=== PATIENT | female | born 1955 | race Hispanic/Latino ===

== ENCOUNTER 2018-03-09 18:48 | Emergency (ER) | payer MEDICARE ==
[2018-03-09 20:17] LABS: Urine Blood NEGATIVE (NEG); Urine Glucose 2+ (NEG); Urine Protein TRACE (NEG); Urine Specific Gravity 1.015 (1.005-1.030); Urine pH 5.5 (5.0-7.0)
[2018-03-09 20:17] LABS: Absolute Lymphocytes (CBC) 2.3 K/uL (0.7-4.9); Absolute Monocytes 1.1 K/uL (0.1-1.3); Absolute Neutrophil 8.5 K/uL (1.8-8.0); Basophils % 0.7 % (0-1.3); Eosinophils % 3.2 % (0-4.4); Hematocrit 38.7 % (36.0-45.0); Lymphocytes % 18.8 % (15.3-44.8); MCH 32.1 pg (27.0-35.0); MCV 95.5 fL (80-100); MPV 7.7 fL (7.6-11.3); Monocytes % 8.7 % (3.3-12.3); RBC Red Blood Cell Count 4.05 M/uL (3.86-4.86)
[2018-03-09 20:31] LABS: Urine Bacteria <20 /HPF (<20); Urine Culture Reflex Order REFLEXED; Urine RBC <5 /HPF (NONE SEEN)
[2018-03-09 20:33] LABS: Potassium 4.3 mEq/L (3.6-5.0)
[2018-03-09 20:40] LABS: Albumin 4.3 g/dL (3.2-5.5); Bilirubin Direct 0.1 mg/dL (0-0.2); Bilirubin Total 0.7 mg/dL (0.3-1.2); Protein, Total 7.6 g/dL (6.0-8.3)
--- NOTE | 2018-03-09 21:21 | RAD REPORT ---
EXAM DESCRIPTION: CT - Abdomen Pelvis W Contrast - 03/09/2018 8:59 pm CLINICAL HISTORY: Left upper quadrant COMPARISON: None. TECHNIQUE: Biphasic, helical CT imaging of the abdomen and pelvis was performed following 100 ml non -ionic IV contrast. Oral contrast was given. All CT scans are performed using dose optimization technique as appropriate and may include automated exposure control or mA/KV adjustment according to patient size. FINDINGS: No suspicious findings in the lung bases. The liver, spleen, and pancreas show no suspicious findings. Cholecystectomy clips are present. No bi liary tree dilatation. Symmetric renal function is seen with no hydronephrosis or suspicious renal mass. No bladder abnormal ity. Uterus is absent. Ovaries are absent or atrophic. No gastric dilatation or gastric wall thickening. No dilated small bowel loop or significant small shyam wel wall thickening seen. There are no appendicitis findings. From cecum through splenic flexure no a cute colon process seen. There is a trace amount of edema or stranding in the descending colon near t he junction with the sigmoid colon a minimal colitis or diverticulitis suspected. Patient has mild di verticulosis. No free air, pneumatosis or free fluid. No other stranding seen. No mass or bulky lymphadenopathy. No adrenal abnormality. Advanced disc and bony degenerative change present in the lower lumbar spine. IMPRESSION: Minimal diverticulitis findings in the distal portion of the descending colon. No abscess, free air or surgically emergent finding.
[2018-03-09] MEDS ORDERED: ACETAMINOPHEN 500 MG TAB ONE (21:26)
[2018-03-09] MEDS ORDERED: MORPHINE 4 MG/ML SYR ONE (22:12)
[2018-03-09] MEDS ORDERED: CIPROFLOXACIN HCL 500 MG TAB ONE (22:12)
[2018-03-09] MEDS ORDERED: ONDANSETRON 4 MG/2 ML VIAL ONE (22:12)
[2018-03-09] MEDS ORDERED: METRONIDAZOLE 500mg IVPB 500 MG/100 ML BAG IV ONE (22:14)
--- NOTE | 2018-03-09 22:40 | EDPHYS ---
Physician Documentation [facility] Name: Chelly Ferguson Age: 62 yrs Sex: Female : 1955 Arrival Date: 03/09/2018 Time: 18:49 Bed 6 Private MD: ED Physician Marvin Treviño HPI: 03/09 19:55 This 62 yrs old Female presents to ER via Ambulatory with complaints of PAIN tw4 LEFT SIDE. 19:55 The patient presents with abdominal pain. Onset: The symptoms/episode began/occurred 3 tw4 day(s) ago. The symptoms radiate to the left flank, left femoral area and left inguinal area. Associated signs and symptoms: none. The symptoms are described as sharp. Modifying factors: The symptoms are alleviated by remaining still, the symptoms are aggravated by coughing, breathing deeply, movement, pressure. Severity of pain: At its worst the pain was moderate in the emergency department the pain is unchanged. The patient has not experienced similar symptoms in the past. The patient has not recently seen a physician. Historical: - Allergies: 19:14 No Known Allergies; hb - Immunization history:: Adult Immunizations up to date. - Social history:: Smoking status: Patient/guardian denies using tobacco. ROS: 19:55 Constitutional: Negative for fever, chills, and weight loss, Cardiovascular: Negative tw4 for chest pain, palpitations, and edema, Respiratory: Negative for shortness of breath, cough, wheezing, and pleuritic chest pain, Back: Negative for injury and pain, MS/Extremity: Negative for injury and deformity, Skin: Negative for injury, rash, and discoloration, Neuro: Negative for headache, weakness, numbness, tingling, and seizure. 19:55 Abdomen/GI: Positive for abdominal pain, abdominal cramps, abdominal distension, Negative for black/tarry stool, rectal pain, rectal bleeding, bowel incontinence. Exam: 19:55 Constitutional: This is a well developed, well nourished patient who is awake, alert, tw4 and in no acute distress. Head/Face: Normocephalic, atraumatic. Chest/axilla: Normal chest wall appearance and motion. Nontender with no deformity. No lesions are appreciated. Cardiovascular: Regular rate and rhythm with a normal S1 and S2. No gallops, murmurs, or rubs. Normal PMI, no JVD. No pulse deficits. Respiratory: Lungs have equal breath sounds bilaterally, clear to auscultation and percussion. No rales, rhonchi or wheezes noted. No increased work of breathing, no retractions or nasal flaring. 19:55 Abdomen/GI: Inspection: abdomen appears normal, Bowel sounds: normal, Palpation: moderate abdominal tenderness, in the left upper quadrant and left lower quadrant. Vital Signs: 19:14 BP 160 / 88; Pulse 111; Resp 20; Temp 98; Pulse Ox 96% ; Weight 72.57 kg; Height 5 ft. hb 1 in. (154.94 cm); Pain 8/10; 20:40 BP 158 / 76; Pulse 105; Resp 18; Pulse Ox 97% on R/A; ea 21:41 BP 149 / 87; Pulse 105; Resp 18; Pulse Ox 98% ; ea 22:26 BP 155 / 98; Pulse 108; Resp 18; Pulse Ox 97% ; ea 23:05 BP 143 / 83; Pulse 97; Resp 18; Pulse Ox 97% ; Pain 4/10; mg2 23:33 BP 141 / 80; Pulse 99; Resp 18; Temp 97.2(O); Pulse Ox 97% on R/A; Pain 0/10; mg2 19:14 Body Mass Index 30.23 (72.57 kg, 154.94 cm) hb MDM: 19:46 Patient medically screened. tw4 22:38 Differential diagnosis: bowel obstruction, cholecystitis, Cholelithiasis, tw4 diverticulitis, Peptic Ulcer Disease, Perf. Duodenal Ulcer, Perf. Gastric Ulcer, Pyelonephritis, Ureterolithiasis, urinary tract infection. Data reviewed: vital signs, nurses notes. Counseling: I had a detailed discussion with the patient and/or guardian regarding: the historical points, exam findings, and any diagnostic results supporting the discharge/admit diagnosis. Medication response: morphine markedly relieved the patient's pain. Symptoms have improved. Response to treatment: the patient's symptoms have markedly improved after treatment, and as a result, I will discharge patient. Special discussion: I discussed with the patient/guardian in detail that at this point there is no indication for admission to the hospital. It is understood, however, that if the symptoms persist or worsen the patient needs to return immediately for re-evaluation. Special discussion: Based on the patient's Hx, exam, and Dx evaluation, there is no indication for emergent surgery or inpatient Tx. It is understood by the patient/guardian that if the Sx's persist or worsen they need to return immediately for re-evaluation. 03/09 19:31 Order name: Amylase, Serum; Complete Time: 21:22 [facility] 03/09 21:22 Interpretation: Within normal limits: SHERLEY 80. [facility] 03/09 19:31 Order name: Basic Metabolic Panel; Complete Time: 21:22 [facility] 03/09 21:22 Interpretation: Normal except: GLUC 197; BUN 23; CRE 1.03. 03/09 19:31 Order name: CBC with Diff; Complete Time: 21:22 [facility] 03/09 21:22 Interpretation: Normal except: WBC 12.4. 03/09 19:31 Order name: Creatinine for Radiology; Complete Time: 21:22 [facility] 03/09 21:22 Interpretation: Abnormal: GFR 50; CRE 1.10. [facility] 03/09 19:31 Order name: Hepatic Function; Complete Time: 21:22 [facility] 03/09 21:22 Interpretation: Within normal limits. 03/09 19:31 Order name: Lipase; Complete Time: 21:22 [facility] 03/09 21:23 Interpretation: Within normal limits. 03/09 19:31 Order name: Urine Microscopic Only; Complete Time: 21:22 [facility] 03/09 21:22 Interpretation: Normal except: UWBC 20-50. 03/09 19:57 Order name: CT Abd/Pelvis - W/Contrast; Complete Time: 21:47 [facility] 03/09 20:10 Order name: Urine Dipstick--Ancillary (enter results); Complete Time: 21:22 [place] 03/09 20:33 Order name: Urine Culture [facility] 03/09 19:31 Order name: IV Saline Lock; Complete Time: 20:19 [facility] 03/09 19:31 Order name: Labs collected and sent; Complete Time: 20:19 [facility] 03/09 19:31 Order name: Urine Dipstick-Ancillary (obtain specimen); Complete Time: 20:19 tw4 Administered Medications: 21:28 Drug: Tylenol 1000 mg Route: PO; ea 22:30 Follow up: Response: No adverse reaction ea 22:29 Drug: morphine 2 mg Route: IVP; Site: right antecubital; ea 23:06 Follow up: Response: No adverse reaction; Pain is decreased mg2 22:29 Drug: Flagyl 500 mg Volume: 100 ml; Route: IVPB; Rate: 200 ml/hr; Infused Over: 30 ea mins; Site: right antecubital; 23:28 Follow up: Response: No adverse reaction; IV Status: Completed infusion mg2 22:29 Drug: Cipro 500 mg Route: PO; ea 23:07 Follow up: Response: No adverse reaction mg2 22:29 Drug: Zofran 4 mg Route: IVP; Site: right antecubital; ea 23:07 Follow up: Response: No adverse reaction; Marked relief of symptoms mg2 Disposition: 03/09/18 22:40 Discharged to Home. Impression: Diverticulitis of intestine, part unspecified, with perforation and abscess without bleeding. - Condition is Stable. - Discharge Instructions: Diverticulitis, Diverticulitis, [id number]. - Prescriptions for Cipro 500 mg Oral Tablet - take 1 tablet by ORAL route every 12 hours for 10 days; 20 tablet. Flagyl 500 mg Oral Tablet - take 1 tablet by ORAL route every 12 hours for 7 days; 14 tablet. Tylenol- Codeine #3 300-30 mg Oral Tablet - take 2 tablet by ORAL route every 6 hours As needed; 6 tablet. Motrin IB 200 mg Oral Tablet - take 1 tablet by ORAL route every 6 hours As needed as needed with food; 40 tablet. - Medication Reconciliation Form, Thank You Letter, Antibiotic Education, Prescription Opioid Use form. - Follow up: Private Physician; When: Upon discharge from the Emergency Department; Reason: Recheck today's complaints, Continuance of care, Re-evaluation by your physician. - Problem is new. - Symptoms have improved. Signatures: Dispatcher [employer] EDMS Marina Jain RN RN Xenia An RN RN Marvin De La Paz MD MD tw4 Marco A Chiu RN RN mg2 Corrections: (The following items were deleted from the chart) 23:35 22:40 03/09/2018 22:40 Discharged to Home. Impression: Diverticulitis of intestine, mg2 part unspecified, with perforation and abscess without bleeding. Condition is Stable. Forms are Medication Reconciliation Form, Thank You Letter, Antibiotic Education, Prescription Opioid Use. Follow up: Private Physician; When: Upon discharge from the Emergency Department; Reason: Recheck today's complaints, Continuance of care, Re-evaluation by your physician. Problem is new. Symptoms have improved. tw4
--- NOTE | 2018-03-09 22:40 | ER ---
Nurse's Notes [facility] Name: Cehlly Ferguson Age: 62 yrs Sex: Female : 1955 Arrival Date: 03/09/2018 Time: 18:49 Bed 6 Private MD: Diagnosis: Diverticulitis of intestine, part unspecified, with perforation and abscess without bleeding Presentation: 03/09 19:13 Presenting complaint: Patient states: intermittent LUQ pain x 3 days. Denies N/V/D. hb Transition of care: patient was not received from another setting of care. Onset of symptoms is unknown. Care prior to arrival: None. 19:13 Method Of Arrival: Ambulatory hb 19:13 Acuity: BRADLY 3 hb 20:00 Initial Sepsis Screen: Does the patient meet any 2 criteria? HR > 90 bpm. Does the ea patient have a suspected source of infection? No. Patient's initial sepsis screen is negative. Historical: - Allergies: 19:14 No Known Allergies; hb - Immunization history:: Adult Immunizations up to date. - Social history:: Smoking status: Patient/guardian denies using tobacco. Screenin:10 Abuse screen: Denies threats or abuse. Nutritional screening: No deficits noted. ea Tuberculosis screening: No symptoms or risk factors identified. Fall Risk None identified. Assessment: 20:00 General: Appears uncomfortable, Behavior is calm, cooperative, appropriate for age. ea Pain: Complains of pain in left upper quadrant Pain currently is 9 out of 10 on a pain scale. Quality of pain is described as aching. Neuro: Level of Consciousness is awake, alert, obeys commands, Oriented to person, place, time, situation. Cardiovascular: Heart tones S1 S2 present Patient's skin is warm and dry. Respiratory: Airway is patent Respiratory effort is even, unlabored, Respiratory pattern is regular, symmetrical, Breath sounds are clear bilaterally. GI: Abdomen is obese, Bowel sounds present X 4 quads. Abdomen is tender to palpation in left upper quadrant. Derm: Skin is pink, warm \T\ dry. 21:15 Reassessment: Patient and/or family updated on plan of care and expected duration. Pain ea level reassessed. Patient is alert, oriented x 3, equal unlabored respirations, skin warm/dry/pink. 22:31 Reassessment: Patient and/or family updated on plan of care and expected duration. Pain ea level reassessed. Patient is alert, oriented x 3, equal unlabored respirations, skin warm/dry/pink. 23:04 Reassessment: Patient and/or family updated on plan of care and expected duration. Pain mg2 level reassessed. Patient is alert, oriented x 3, equal unlabored respirations, skin warm/dry/pink. Discharge instructions given to patient, awaiting for antibiotic infusion to complete. 23:30 Reassessment: Patient and/or family updated on plan of care and expected duration. Pain mg2 level reassessed. Patient is alert, oriented x 3, equal unlabored respirations, skin warm/dry/pink. Pt completed antibiotics. Patient denies pain at this time. Patient states feeling better. Vital Signs: 19:14 BP 160 / 88; Pulse 111; Resp 20; Temp 98; Pulse Ox 96% ; Weight 72.57 kg; Height 5 ft. hb 1 in. (154.94 cm); Pain 8/10; 20:40 BP 158 / 76; Pulse 105; Resp 18; Pulse Ox 97% on R/A; ea 21:41 BP 149 / 87; Pulse 105; Resp 18; Pulse Ox 98% ; ea 22:26 BP 155 / 98; Pulse 108; Resp 18; Pulse Ox 97% ; ea 23:05 BP 143 / 83; Pulse 97; Resp 18; Pulse Ox 97% ; Pain 4/10; mg2 23:33 BP 141 / 80; Pulse 99; Resp 18; Temp 97.2(O); Pulse Ox 97% on R/A; Pain 0/10; mg2 19:14 Body Mass Index 30.23 (72.57 kg, 154.94 cm) hb ED Course: 18:49 Patient arrived in ED. mr 19:14 Triage completed. hb 19:14 Arm band placed on right wrist. hb 19:46 Marvin Treviño MD is Attending Physician. tw4 19:50 Xenia An RN is Primary Nurse. ea 20:00 Patient has correct armband on for positive identification. Bed in low position. Call ea light in reach. Side rails up X2. 20:00 Inserted saline lock: 20 gauge in right antecubital area, using aseptic technique. ea Blood collected. 21:00 CT Abd/Pelvis - W/Contrast In Process Unspecified. EDMS 21:01 CT completed. Patient tolerated procedure well. Patient moved to [place] via stretcher. Patient moved back from MN. 23:04 No provider procedures requiring assistance completed. mg2 23:35 IV discontinued, intact, bleeding controlled, No redness/swelling at site. Pressure mg2 dressing applied. Administered Medications: 21:28 Drug: Tylenol 1000 mg Route: PO; ea 22:30 Follow up: Response: No adverse reaction ea 22:29 Drug: morphine 2 mg Route: IVP; Site: right antecubital; ea 23:06 Follow up: Response: No adverse reaction; Pain is decreased mg2 22:29 Drug: Flagyl 500 mg Volume: 100 ml; Route: IVPB; Rate: 200 ml/hr; Infused Over: 30 ea mins; Site: right antecubital; 23:28 Follow up: Response: No adverse reaction; IV Status: Completed infusion mg2 22: Drug: Cipro 500 mg Route: PO; ea 23:07 Follow up: Response: No adverse reaction mg2 22:29 Drug: Zofran 4 mg Route: IVP; Site: right antecubital; ea 23:07 Follow up: Response: No adverse reaction; Marked relief of symptoms mg2 Outcome: 22:40 Discharge ordered by tw4 23:04 Discharge instructions given to patient, Instructed on discharge instructions, follow mg2 up and referral plans. medication usage, Demonstrated understanding of instructions, follow-up care, medications, Prescriptions given X 4. 23:35 Discharged to home ambulatory, with family. mg2 23:35 Condition: improved 23:35 Patient left the ED. mg2 Signatures: Dispatcher [employer] [facility] Jenn Goodman XiaoClay Marina Jain, ROX GRAMAJO Xenia An RN RN ea Wadley, Terrence, MD MD tw4 Marco A Chiu RN RN mg2
[2018-03-09 23:44] VITALS: O2SAT 97
[2018-03-09 23:46] VITALS: BP 141/80; TEMP 97.2
== END 2018-03-09 23:35 | disposition home or self-care (01) ==
LOC: ER 18:48
DX: K57.92 Diverticulitis of intestine, part unspecified, without perforation or abscess without bleeding (principal)
CPT/HCPCS: 36415; 74177; 80048; 80076; 82150; 83690; 85025; 87086; 87088; J2405; Q9967; 81003; 81015; 96365; 96375; 99284

== ENCOUNTER 2018-03-11 12:28 | Emergency (ER) | payer MEDICARE ==
--- OUTSIDE RECORDS SUMMARY | 2018-03-11 12:29 | XMS REPORT ---
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 Problem Diabetes mellitus type 2, E11.9 Active uncontrolled, without complications Problem Malaise and fatigue R53.81 Active Assessment Vitamin D deficiency E55.9 Active Assessment 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 Assessment Allergic rhinitis, seasonal J30.2 Active Assessment Hypomagnesemia E83.42 Active Assessment Benign essential hypertension I10 Active Assessment Hyperlipemia, mixed E78.2 Active Assessment Proteinuria, unspecified R80.9 Active Assessment Malaise and fatigue R53.81 Active Assessment Diabetes mellitus type 2, E11.9 Active uncontrolled, without complications Medications Medication Code Code Instructions Start End Status Dosage System Date Date Lisinopril [facility] 40748407115 20 MG Orally Active 1 tablet Once a day Jardiance [facility] 95120369702 10 MG Orally February Inactive 1 tablet Once a day 2017 Glucophage [facility] 38255150744 1000 MG Orally Active 1 tablet Twice a day with meals Lipitor ND 61279139515 20 MG Orally Active 1 tablet Once a day Vitamin D3 [facility] 53740549927 2000 UNIT Active 1 capsule Orally Once a day Jardiance [facility] 78238890037 25 MG Orally March 05Jun Active 1 tablet Once a day 2017 Hydrochlorothiazide [facility] 47380776963 12.5 MG Orally Active 1 tablet Once a day in the morning Magnesium Oxide ND 47816402013 400 MG Orally Nov Active 1 tablet Twice a day , as needed 2017 Gabapentin [facility] 35066763587 600 MG Orally Active 1 tablet Twice a day Results No Known Results Summary Purpose eClinicalWorks Submission
[2018-03-11] MEDS ORDERED: MAGNESIUM CITRATE 300 ML BOT ONE (13:40)
[2018-03-11] MEDS ORDERED: BISACODYL E.C. 5 MG TAB PO ONE (13:40)
--- NOTE | 2018-03-11 14:02 | RAD REPORT ---
EXAM DESCRIPTION: RAD - Abdomen Acute Series - 03/11/2018 1:53 pm CLINICAL HISTORY: Abdominal pain FINDINGS: Free air is not seen beneath the diaphragm. The lungs appear clear of acute infiltrate. The bowel gas pattern is unremarkable. Surgical clips are present within the right upper quadrant. No abnormal mass is visualized
--- NOTE | 2018-03-11 14:37 | EDPHYS ---
Physician Documentation [facility] Name: Chelly Ferguson Age: 62 yrs Sex: Female : 1955 Arrival Date: 03/11/2018 Time: 12:32 Bed 23 Private MD: Mayela Pacheco H ED Physician Venkat Downs HPI: 03/11 14:22 This 62 yrs old Female presents to ER via Ambulatory with complaints of kdr Constipation. 14:22 The patient presents with abdominal pain that is diffuse. Onset: The symptoms/episode kdr began/occurred gradually, Since last year. The symptoms do not radiate. Associated signs and symptoms: Pertinent positives: constipation, nausea, Pertinent negatives: anorexia, blood in stools, chest pain, diarrhea, fever, headache, hematuria, palpitations, shortness of breath. Historical: - Allergies: 12:39 No Known Allergies; aj - Home Meds: 12:39 Jardiance 10 mg oral tab 1 tab once daily [Active]; Magnesium Oxide Oral [Active]; aj Glucophage 1,000 mg Oral tab 1 tab 2 times per day [Active]; lisinopril 20 mg Oral tab 1 tab once daily [Active]; hydrochlorothiazide 12.5 mg Oral tab 1 tab once daily [Active]; gabapentin 600 mg oral tab 1 tab twice a day [Active]; Lipitor 20 mg Oral tab 1 tab once daily [Active]; - PMHx: 12:39 Diabetes - NIDDM; Hyperlipidemia; Hypertension; aj - PSHx: 12:39 Hysterectomy; Cholecystectomy; aj - Immunization history:: Adult Immunizations up to date. - Social history:: Smoking status: Patient/guardian denies using tobacco. ROS: 14:22 Constitutional: Negative for fever, chills, and weight loss, Eyes: Negative for injury, kdr pain, redness, and discharge, ENT: Negative for injury, pain, and discharge, Neck: Negative for injury, pain, and swelling, Cardiovascular: Negative for chest pain, palpitations, and edema, Respiratory: Negative for shortness of breath, cough, wheezing, and pleuritic chest pain, Back: Negative for injury and pain, : Negative for injury, bleeding, discharge, and swelling, MS/Extremity: Negative for injury and deformity, Skin: Negative for injury, rash, and discoloration, Neuro: Negative for headache, weakness, numbness, tingling, and seizure activity. Psych: Negative for depression, anxiety, suicide ideation, homicidal ideation, and hallucinations, Allergy/Immunology: Negative for hives, rash, and allergies, Endocrine: Negative for neck swelling, polydipsia, polyuria, polyphagia, and marked weight changes, Hematologic/Lymphatic: Negative for swollen nodes, abnormal bleeding, and unusual bruising. 14:22 Abdomen/GI: Positive for abdominal pain, nausea, Negative for vomiting, constipation, abdominal cramps, abdominal distension, anorexia, dysphagia, hematemesis, black/tarry stool, rectal pain, rectal bleeding, bowel incontinence. Exam: 14:22 Constitutional: This is a well developed, well nourished patient who is awake, alert, kdr and in no acute distress. Head/Face: Normocephalic, atraumatic. Eyes: Pupils equal round and reactive to light, extra-ocular motions intact. Lids and lashes normal. Conjunctiva and sclera are non-icteric and not injected. Cornea within normal limits. Periorbital areas with no swelling, redness, or edema. Neck: Trachea midline, no thyromegaly or masses palpated, and no cervical lymphadenopathy. Supple, full range of motion without nuchal rigidity, or vertebral point tenderness. No Meningismus. Chest/axilla: Normal chest wall appearance and motion. Nontender with no deformity. No lesions are appreciated. Cardiovascular: Regular rate and rhythm with a normal S1 and S2. No gallops, murmurs, or rubs. Normal PMI, no JVD. No pulse deficits. Respiratory: Lungs have equal breath sounds bilaterally, clear to auscultation and percussion. No rales, rhonchi or wheezes noted. No increased work of breathing, no retractions or nasal flaring. Back: No spinal tenderness. No costovertebral tenderness. Full range of motion. Skin: Warm, dry with normal turgor. Normal color with no rashes, no lesions, and no evidence of cellulitis. MS/ Extremity: Pulses equal, no cyanosis. Neurovascular intact. Full, normal range of motion. Neuro: Awake and alert, GCS 15, oriented to person, place, time, and situation. Cranial nerves II-XII grossly intact. Motor strength 5/5 in all extremities. Sensory grossly intact. Cerebellar exam normal. Normal gait. Psych: Awake, alert, with orientation to person, place and time. Behavior, mood, and affect are within normal limits. 14:22 Abdomen/GI: Inspection: abdomen appears normal, Bowel sounds: diminished, in all quadrants, Palpation: soft, mild abdominal tenderness, in all quadrants, mass, is not appreciated, rebound tenderness, is not appreciated. Vital Signs: 12:39 BP 153 / 77; Pulse 101; Resp 19; Temp 97.6; Pulse Ox 97% on R/A; Weight 72.57 kg; aj Height 5 ft. 1 in. (154.94 cm); 14:00 BP 172 / 88; Pulse 81; Resp 18; Pulse Ox 99% on R/A; tl3 14:57 BP 148 / 76; Pulse 92; Resp 16; Pulse Ox 97% on R/A; tl3 12:39 Body Mass Index 30.23 (72.57 kg, 154.94 cm) aj MDM: 14:22 Data reviewed: vital signs, nurses notes, lab test result(s), radiologic studies. kdr Counseling: I had a detailed discussion with the patient and/or guardian regarding: the historical points, exam findings, and any diagnostic results supporting the discharge/admit diagnosis, radiology results, the need for outpatient follow up. 14:36 Patient medically screened. kdr 03/11 13:25 Order name: Abdomen Acute Series XRAY; Complete Time: 14:18 kdr Administered Medications: 14:00 Drug: Magnesium Citrate Liquid 300 ml Route: PO; tl3 14:54 Follow up: Response: No adverse reaction tl3 14:00 Drug: Dulcolax Delayed Release Tablet 5 mg Route: PO; tl3 14:54 Follow up: Response: No adverse reaction tl3 Disposition: 1618 14:36 Discharged to Home. Impression: Constipation, Abdominal and pelvic pain. - Condition is Stable. - Discharge Instructions: Constipation, Adult, [id number], Abdominal Pain, Adult, [id number]. - Prescriptions for Pepcid 20 mg Oral Tablet - take 1 tablet by ORAL route every 12 hours for 5 days; 10 tablet. Tramadol 50 mg Oral Tablet - take 1 tablet by ORAL route every 8 hours as needed; 12 tablet. Dulcolax 10 mg Rectal Suppository - insert 1 suppository by RECTAL route every 6 hours As needed; 10 suppository. Miralax 17 gram/dose Oral - take 1 packet by ORAL route once daily As needed dilute powder in 8 ounces of water or juice; 1 box. - Medication Reconciliation Form, Thank You Letter, Antibiotic Education, Prescription Opioid Use form. - Follow up: Mayela Pacheco DO; When: 2 - 3 days; Reason: If symptoms return, Further diagnostic work-up, Recheck today's complaints, Continuance of care, Re-evaluation by your physician. - Problem is an ongoing problem. - Symptoms have improved. Signatures: Dispatcher [employer] EDMS Evy Suarez RN RN aj Venkat Downs MD MD [facility] [address] Clarissa Martinez RN RN tl3 Corrections: (The following items were deleted from the chart) 14:59 14:36 03/11/2018 14:36 Discharged to Home. Impression: Constipation; Abdominal and tl3 pelvic pain. Condition is Stable. Forms are Medication Reconciliation Form, Thank You Letter, Antibiotic Education, Prescription Opioid Use. Follow up: Mayela Pacheco; When: 2 - 3 days; Reason: If symptoms return, Further diagnostic work-up, Recheck today's complaints, Continuance of care, Re-evaluation by your physician. Problem is an ongoing problem. Symptoms have improved. kdr
--- NOTE | 2018-03-11 14:37 | ER ---
Nurse's Notes [facility] Name: Chelly Ferguson Age: 62 yrs Sex: Female : 1955 Arrival Date: 03/11/2018 Time: 12:32 Bed 23 Private MD: Mayela Pacheco H Diagnosis: Constipation;Abdominal and pelvic pain Presentation: 03/11 12:35 Presenting complaint: Patient states: Constipation since Friday. DX with "infection in aj colon" here on Friday. Patient reports she has been compliant with ABX. Transition of care: patient was not received from another setting of care. Onset of symptoms was March 08, 2018. Care prior to arrival: None. 12:35 Method Of Arrival: Ambulatory aj 12:35 Acuity: BRADLY 4 aj 14:59 Initial Sepsis Screen: Does the patient meet any 2 criteria? Does the patient have a tl3 suspected source of infection? No. Patient's initial sepsis screen is negative. Triage Assessment: 12:39 General: Appears in no apparent distress. comfortable, Behavior is calm, cooperative, aj appropriate for age. Pain: Complains of pain in abdomen. Neuro: Level of Consciousness is awake, alert, obeys commands, Oriented to person, place, time, situation, Appropriate for age. Respiratory: Airway is patent Respiratory effort is even, unlabored, Respiratory pattern is regular, symmetrical. GI: Abdomen is obese, Reports constipation, cramping. Derm: Skin is intact, is healthy with good turgor, Skin is pink, warm \\T\\ dry. normal. Historical: - Allergies: 12:39 No Known Allergies; aj - Home Meds: 12:39 Jardiance 10 mg oral tab 1 tab once daily [Active]; Magnesium Oxide Oral [Active]; aj Glucophage 1,000 mg Oral tab 1 tab 2 times per day [Active]; lisinopril 20 mg Oral tab 1 tab once daily [Active]; hydrochlorothiazide 12.5 mg Oral tab 1 tab once daily [Active]; gabapentin 600 mg oral tab 1 tab twice a day [Active]; Lipitor 20 mg Oral tab 1 tab once daily [Active]; - PMHx: 12:39 Diabetes - NIDDM; Hyperlipidemia; Hypertension; aj - PSHx: 12:39 Hysterectomy; Cholecystectomy; aj - Immunization history:: Adult Immunizations up to date. - Social history:: Smoking status: Patient/guardian denies using tobacco. Screenin:56 Abuse screen: Denies threats or abuse. Nutritional screening: No deficits noted. tl3 Tuberculosis screening: No symptoms or risk factors identified. Fall Risk None identified. Assessment: 12:56 General: Appears uncomfortable, well groomed, well developed, well nourished, Behavior tl3 is calm, cooperative, appropriate for age, Reports constipation, no BM since Friday. Was actually seen here on Friday for same, put on abx. Pain: Complains of pain in abdomen. Neuro: Level of Consciousness is awake, alert, obeys commands, Oriented to person, place, time, situation, Appropriate for age. Cardiovascular: Denies chest pain, Heart tones S1 S2 present Patient's skin is warm and dry. Respiratory: Airway is patent Trachea midline Respiratory effort is even, unlabored, Respiratory pattern is regular, symmetrical, Breath sounds are clear bilaterally. GI: Bowel sounds hypoactive in right upper quadrant, left upper quadrant, right lower quadrant and left lower quadrant Abd is soft. : No signs and/or symptoms were reported regarding the genitourinary system. EENT: No signs and/or symptoms were reported regarding the EENT system. Derm: No signs and/or symptoms reported regarding the dermatologic system. Musculoskeletal: No signs and/or symptoms reported regarding the musculoskeletal system. 14:00 Reassessment: Patient appears in no apparent distress at this time. No changes from tl3 previously documented assessment. Patient and/or family updated on plan of care and expected duration. Pain level reassessed. Patient is alert, oriented x 3, equal unlabored respirations, skin warm/dry/pink. pt starting Mag Citrate. 14:57 Reassessment: Patient appears in no apparent distress at this time. No changes from tl3 previously documented assessment. Patient and/or family updated on plan of care and expected duration. Pain level reassessed. Patient is alert, oriented x 3, equal unlabored respirations, skin warm/dry/pink. Vital Signs: 12:39 BP 153 / 77; Pulse 101; Resp 19; Temp 97.6; Pulse Ox 97% on R/A; Weight 72.57 kg; aj Height 5 ft. 1 in. (154.94 cm); 14:00 BP 172 / 88; Pulse 81; Resp 18; Pulse Ox 99% on R/A; tl3 14:57 BP 148 / 76; Pulse 92; Resp 16; Pulse Ox 97% on R/A; tl3 12:39 Body Mass Index 30.23 (72.57 kg, 154.94 cm) ED Course: 12:32 Patient arrived in ED. mr 12:32 Tara ShannonMicaRafaelDO en is Private Physician. mr 12:34 Venkat Downs MD is Attending Physician. kdr 12:36 Triage completed. aj 12:39 Arm band placed on right wrist. Patient placed in an exam room. aj 12:56 Clarissa Martinez, RN is Primary Nurse. tl3 12:56 No apparent distress. tl3 12:56 Patient has correct armband on for positive identification. Bed in low position. Call tl3 light in reach. Side rails up X 1. Adult w/ patient. 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 tl3 13:41 Patient moved to radiology via wheelchair. sw 13:49 X-ray completed. Patient tolerated procedure well. Patient moved back from radiology. sw 13:50 Abdomen Acute Series XRAY In Process Unspecified. EDMS 14:35 Pacheco ShannonDO Heydi is Referral Physician. kdr 14:57 Patient did not have IV access during this emergency room visit. tl3 Administered Medications: 14:00 Drug: Magnesium Citrate Liquid 300 ml Route: PO; tl3 14:54 Follow up: Response: No adverse reaction tl3 14:00 Drug: Dulcolax Delayed Release Tablet 5 mg Route: PO; tl3 14:54 Follow up: Response: No adverse reaction tl3 Outcome: 14:36 Discharge ordered by . kdr 14:57 Discharged to home ambulatory. tl3 14:57 Condition: good 14:57 Discharge instructions given to patient, Instructed on discharge instructions, follow up and referral plans. medication usage, Demonstrated understanding of instructions, follow-up care, medications, Prescriptions given X 4. 14:59 Patient left the ED. tl3 Signatures: Dispatcher [employer] EDMS Evy Suarez, RN Venkat Helton MD MD kdr Rivera, Maria mr Levy Candace Clarissa Martinez, ROX RN tl3
[2018-03-11 15:05] VITALS: TEMP 97.6
[2018-03-11 15:07] VITALS: BP 148/76; O2SAT 97
== END 2018-03-11 14:59 | disposition home or self-care (01) ==
LOC: ER 12:28
DX: K59.00 Constipation, unspecified (principal); E11.9 Type 2 diabetes mellitus without complications; E78.5 Hyperlipidemia, unspecified; I10 Essential (primary) hypertension
CPT/HCPCS: 74022; 99284

== ENCOUNTER 2019-06-05 07:38 | Emergency (ER) | payer MEDICARE ==
--- OUTSIDE RECORDS SUMMARY | 2019-06-05 07:42 | XMS REPORT ---
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 Problem Constipation, unspecified K59.00 Active constipation type Problem Allergic rhinitis, seasonal J30.2 Active Problem Diverticulitis of large intestine K57.32 Active without perforation or abscess without bleeding Problem Hyperkalemia E87.5 Active Problem Hypomagnesemia E83.42 Active Problem Proteinuria, unspecified R80.9 Active Problem Vitamin D deficiency E55.9 Active Medications Medication Code Code Instructions Start End Status Dosage System Date Date Atorvastatin Calcium [facility] 40871234016 20 MG Active TAKE ONE TABLET BY MOUTH ONCE DAILY Magnesium Oxide [facility] 60015231905 400 MG Orally Active 1 tablet Three times a as needed day Lisinopril [facility] 63907261444 20 MG Orally Active 1 tablet Once a day Gabapentin [facility] 58275935870 600 MG Orally Active 1 tablet Twice a day One Touch Ultra Test [facility] 844235042220 In December Active monitor Strips once daily 2018 glucose Metformin HCl [facility] 89762441053 1000 MG Orally Active 1 tablet Twice a day with a meal Jardiance [facility] 64474108257 25 MG Orally Feb Active 1 tablet Once a day 2019 Lipitor [facility] 27920625706 40 MG Orally Active 1 tablet Once a day Hydrochlorothiazide [facility] 00496102592 12.5 MG Orally Active 1 tablet Once a day in the morning Jardiance [facility] 58591439544 25 MG Orally Active 1 tablet Once a day Vitamin D3 [facility] 27003885054 2000 UNIT Active 1 capsule Orally Once a day Januvia [facility] 39851599179 100 MG Orally Dec 23, Active 1 tablet Once a day 2018 Results No Known Results Summary Purpose eClinicalWorks Submission
--- OUTSIDE RECORDS SUMMARY | 2019-06-05 07:42 | XMS REPORT ---
:1955 Author Organization eClinicalWorks Care Team Providers Name Role Phone Lazaro Evans Provider Role Unavailable Allergies No Known Allergies Problems Problem Type Condition Code Onset Dates Condition Status Problem Benign essential hypertension I10 Active Problem Diabetes mellitus type 2, E11.9 Active uncontrolled, without complications Problem Malaise and fatigue R53.81 Active Problem Constipation, unspecified K59.00 Active constipation type Problem Allergic rhinitis, seasonal J30.2 Active Problem Diverticulitis of large intestine K57.32 Active without perforation or abscess without bleeding Problem Hyperkalemia E87.5 Active Problem Hypomagnesemia E83.42 Active Problem Proteinuria, unspecified R80.9 Active Problem Vitamin D deficiency E55.9 Active Assessment Diverticulitis of large intestine K57.32 Active without perforation or abscess without bleeding Problem Diverticulitis K57.92 Active Problem Hyperlipemia, mixed E78.2 Active Assessment Constipation, unspecified K59.00 Active constipation type Problem 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 Medications Medication Code Code Instructions Start End Status Dosage System Date Date Glucophage ND 41880174863 1000 MG Orally Active 1 tablet Twice a day with meals Lisinopril ND 48410930851 20 MG Orally Active 1 tablet Once a day Vitamin D3 ND 90862569087 2000 UNIT Active 1 capsule Orally Once a day Gabapentin ND 61837159992 600 MG Orally Active 1 tablet Twice a day Magnesium Oxide ND 77104114976 400 MG Orally Nov Active 1 tablet Twice a day 06, as needed 2017 Jardiance ND 36884749608 25 MG Orally March 05Jun Active 1 tablet Once a day 2017 Hydrochlorothiazide ND 56982325527 12.5 MG Orally Active 1 tablet Once a day in the morning Lipitor ND 07906476137 20 MG Orally Active 1 tablet Once a day Results No Known Results Summary Purpose eClinicalWorks Submission
--- OUTSIDE RECORDS SUMMARY | 2019-06-05 07:42 | XMS REPORT ---
:1955 Author Organization eClinicalWorks Care Team Providers Name Role Phone Nathan Lazaro Provider Role Unavailable Allergies, Adverse Reactions, Alerts Substance Reaction Event Type N.K.D.A. 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 Problem Allergic rhinitis, seasonal J30.2 Active Assessment Vitamin D deficiency E55.9 Active Assessment Allergic rhinitis, seasonal J30.2 Active Problem Diverticulitis of large intestine K57.32 Active without perforation or abscess without bleeding Problem Hyperkalemia E87.5 Active Problem Hypomagnesemia E83.42 Active Problem Proteinuria, unspecified R80.9 Active Problem Vitamin D deficiency E55.9 Active Assessment Hypomagnesemia E83.42 Active Assessment Benign essential hypertension I10 Active Assessment Hyperlipemia, mixed E78.2 Active Assessment Malaise and fatigue R53.81 Active Problem Diverticulitis K57.92 Active Assessment Proteinuria, unspecified R80.9 Active Problem Hyperlipemia, mixed E78.2 Active Assessment Diabetes mellitus type 2, E11.9 Active uncontrolled, without complications Problem 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 Medications Medication Code Code Instructions Start End Status Dosage System Date Date Gabapentin [facility] 48969195265 600 MG Orally Active 1 tablet Twice a day Magnesium Oxide [facility] 48847122660 400 MG Orally Active 1 tablet Three times a as needed day Jardiance [facility] 02996668173 25 MG Orally Active 1 tablet Once a day Vitamin D3 [facility] 44972199350 2000 UNIT Active 1 capsule Orally Once a day Lisinopril [facility] 15738056966 20 MG Orally Active 1 tablet Once a day Jardiance [facility] 81619877875 25 MG Orally Active 1 tablet Once a day Glucophage [facility] 63651189810 1000 MG Orally Active 1 tablet Twice a day with meals Hydrochlorothiazide [facility] 32176745826 12.5 MG Orally Active 1 tablet Once a day in the morning Lipitor [facility] 89068615228 20 MG Orally Active 1 tablet Once a day Results Name Result Date Reference Range Unit Abnormality Flag Microalbumen/Creat Ratio, Random Ur ----Creatinine, Urine 57.9 [id number] Not Estab. mg/dL ----Albumin, Urine 239.6 [id number] Not Estab. ug/mL ----Alb/Creat Ratio 413.8 [id number] 0.0-30.0 mg/g creat H Summary Purpose eClinicalWorks Submission
--- OUTSIDE RECORDS SUMMARY | 2019-06-05 07:42 | XMS REPORT ---
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
--- OUTSIDE RECORDS SUMMARY | 2019-06-05 07:42 | XMS REPORT ---
[...] End Status Dosage System Date Date Lisinopril [facility] 06390997746 20 MG Orally Active 1 tablet Once a day Jardiance [facility] 87605092225 10 MG Orally February Inactive 1 tablet Once a day [address] [facility] 64814852013 1000 MG Orally Active 1 tablet Twice a day with meals Lipitor ND 62040293970 20 MG Orally Active 1 tablet Once a day Vitamin D3 [facility] 66319087308 2000 UNIT Active 1 capsule Orally Once a day Jardiance [facility] 00454271612 25 MG Orally March 05Jun Active 1 tablet Once a day [address] [facility] 47508714749 12.5 MG Orally Active 1 tablet Once a day in the morning Magnesium Oxide ND 20839035679 400 MG Orally Nov Active 1 tablet Twice a day , as needed [address] [facility] 24371212085 600 MG Orally Active 1 tablet Twice a day Results No Known Results Summary Purpose eClinicalWorks Submission
--- OUTSIDE RECORDS SUMMARY | 2019-06-05 07:42 | XMS REPORT ---
[...] Medications Results No Known Results Summary Purpose eClinicalBplats Submission
--- OUTSIDE RECORDS SUMMARY | 2019-06-05 07:42 | XMS REPORT ---
[...] Start End Status Dosage System Date Date Hydrochlorothiazide [facility] 04343470339 12.5 MG Orally Active 1 tablet Once a day in the morning Gabapentin ND 59913464650 600 MG Orally Active 1 tablet Twice a day Magnesium Oxide ND 13281922806 400 MG Orally Feb Active 1 tablet Three times a 06, as needed day [address] [facility] 38615665405 25 MG Orally Dec Active 1 tablet Once a day [address] [facility] 88239398306 20 MG Orally Active 1 tablet Once a day Lipitor ND 76257374071 20 MG Orally Active 1 tablet Once a day Vitamin D3 [facility] 06976299511 2000 UNIT Active 1 capsule Orally Once a day Glucophage [facility] 33770693382 1000 MG Orally Active 1 tablet Twice a day with meals Results No Known Results Summary Purpose eClinicalWorks Submission
--- OUTSIDE RECORDS SUMMARY | 2019-06-05 07:42 | XMS REPORT ---
:1955 Author Organization eClinicalWorks Care Team Providers Name Role Phone Nathan Lazaro Provider Role Unavailable Allergies, Adverse Reactions, Alerts Substance Reaction Event Type N.K.D.A. 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 Assessment Hyperlipemia, mixed E78.2 Active Problem Benign essential hypertension I10 Active Problem Diabetes mellitus type 2, E11.9 Active uncontrolled, without complications Problem Malaise and fatigue R53.81 Active Problem Constipation, unspecified K59.00 Active constipation type Problem Diverticulitis of large intestine K57.32 Active without perforation or abscess without bleeding Assessment Screening for depression Z13.31 Active Assessment Screening mammogram, encounter for Z12.31 Active Problem Adult BMI 30.0-30.9 kg/sq m Z68.30 Active Assessment Asymptomatic age-related Z78.0 Active postmenopausal state Problem Hyperkalemia E87.5 Active Problem Hypomagnesemia E83.42 Active Problem Proteinuria, unspecified R80.9 Active Problem Vitamin D deficiency E55.9 Active Assessment Encounter for screening for other Z11.59 Active viral diseases Assessment Diabetes mellitus type 2, E11.9 Active uncontrolled, without complications Assessment Benign essential hypertension I10 Active Assessment Encounter for screening for other Z13.89 Active disorder Problem Diverticulitis K57.92 Active Problem Hyperlipemia, mixed E78.2 Active Assessment Well adult on routine health check Z00.00 Active Medications Medication Code Code Instructions Start End Status Dosage System Date Date Metformin HCl ND 19625833434 1000 MG Orally Active 1 tablet Twice a day with a meal Atorvastatin Calcium ND 39272316689 20 MG Active TAKE ONE TABLET BY MOUTH ONCE DAILY Lisinopril ND 49793237170 20 MG Orally Active 1 tablet Once a day Lipitor [facility] 92173930906 40 MG Orally Active 1 tablet Once a day Januvia [facility] 44680756947 100 MG Orally Active 1 tablet Once a day Magnesium Oxide [facility] 90505923925 400 MG Orally Active 1 tablet Three times a as needed day Hydrochlorothiazide [facility] 42207532007 12.5 MG Orally Active 1 tablet Once a day in the morning One Touch Ultra Test [facility] 018680903866 In Vitro December Active monitor Strips once daily blood 2019 glucose Gabapentin [facility] 38507699730 600 MG Orally Active 1 tablet Twice a day Vitamin D3 [facility] 07744893357 2000 UNIT Active 1 capsule Orally Once a day Jardiance [facility] 41631235862 25 MG Orally Active 1 tablet Once a day Results No Known Results Summary Purpose eClinicalWorks Submission
--- OUTSIDE RECORDS SUMMARY | 2019-06-05 07:42 | XMS REPORT ---
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 Medications Medication Code Code Instructions Start End Status Dosage System Date Date [facility] 25490201110 100 MG Orally Dec 23, Active 1 tablet Once a day 2018 Lipitor [facility] 58912494167 40 MG Orally Active 1 tablet Once a day Magnesium Oxide [facility] 52396637102 400 MG Orally Active 1 tablet Three times a as needed day Lisinopril [facility] 45801014872 20 MG Orally Active 1 tablet Once a day Atorvastatin Calcium [facility] 63252446841 20 MG Active TAKE ONE TABLET BY MOUTH ONCE DAILY Jardiance [facility] 50203863806 25 MG Orally Feb Active 1 tablet Once a day 2019 Jardiance [facility] 10241382756 25 MG Orally Active 1 tablet Once a day Gabapentin [facility] 26553693757 600 MG Orally Active 1 tablet Twice a day Hydrochlorothiazide [facility] 29522916425 12.5 MG Orally Active 1 tablet Once a day in the morning Vitamin D3 [facility] 41237747029 2000 UNIT Active 1 capsule Orally Once a day Metformin HCl [facility] 84541423852 1000 MG Orally Active 1 tablet Twice a day with a meal Results No Known Results Summary Purpose eClinicalWorks Submission
[2019-06-05 08:36] LABS: Absolute Lymphocytes (CBC) 2.1 K/uL (0.7-4.9); Basophils % 0.6 % (0-1.3); Hematocrit 37.8 % (36.0-45.0); Lymphocytes % 22.4 % (15.3-44.8); MPV 8.3 fL (7.6-11.3); RBC Red Blood Cell Count 4.05 M/uL (3.86-4.86)
[2019-06-05 08:37] LABS: Protime INR 0.96
[2019-06-05 08:56] LABS: ALT/SGPT 24 U/L (12-78); AST/SGOT 18 U/L (15-37); Albumin 3.9 g/dL (3.4-5.0); Alkaline Phosphatase 78 U/L (45-117); BUN Blood Urea Nitrogen 19 mg/dL (7-18); Bicarbonate 25 mmol/L (21-32); Bilirubin Direct 0.1 mg/dL (0-0.2); Bilirubin Total 0.5 mg/dL (0.2-1.0); Glucose Level 95 mg/dL (74-106); NT PRO-BNP 250 pg/mL (<125); Potassium 3.8 mmol/L (3.5-5.1); Protein, Total 7.4 g/dL (6.4-8.2); Sodium Level 139 mmol/L (136-145); Troponin (Emerg Dept Use Only) < 0.02 ng/mL (0.0-0.045)
[2019-06-05 08:57] LABS: Magnesium 0.7 mg/dL (1.8-2.4)
[2019-06-05] MEDS ORDERED: NA CHLORIDE 0.9% 1,000 ML ONE (09:10)
[2019-06-05] MEDS ORDERED: ONDANSETRON 4 MG/2 ML VIAL ONE (09:10)
[2019-06-05] MEDS ORDERED: Magnesium Sulfate 2gm IVPB 2 G/50 ML BAG IV ONE (09:10)
--- NOTE | 2019-06-05 09:26 | EDPHYS ---
Physician Documentation [facility] Name: Chelly Ferguson Age: 63 yrs Sex: Female : 1955 Arrival Date: 06/05/2019 Time: 07:42 Bed 6 Private MD: ED Physician Clay Mcadams HPI: 06/05 08:51 This 63 yrs old Female presents to ER via Ambulatory with complaints of High braxton Blood Sugar, Nausea/Vomiting. 08:51 The patient or guardian reports hyperglycemia. Onset: The symptoms/episode braxton began/occurred 2 day(s) ago. Historical: - Allergies: 07:44 No Known Allergies; aa5 - Home Meds: 08:07 atorvastatin calcium 20mg daily [Active]; Calcium 500 + D oral 500mg-125 units once a aa5 day oral [Active]; gabapentin 600 mg Oral tab 1 tab twice a day [Active]; hydrochlorothiazide 12.5 mg Oral tab 1 tab once daily [Active]; lisinopril 10 mg oral tab once daily [Active]; magnesium 400mg twice a day [Active]; metformin 1,000 mg Oral tab 1 tab 2 times per day [Active]; acetaminophen 650 mg oral TbER every 8 hrs as needed [Active]; vitamin D-3 1000 unit once a day [Active]; Januvia 100 mg oral tab 1 tab once daily [Active]; - PMHx: 07:44 Diabetes - NIDDM; Hypertension; aa5 - PSHx: 07:44 Hysterectomy; Cholecystectomy; aa5 - Immunization history:: Adult Immunizations unknown. - Social history:: Smoking status: Patient/guardian denies using tobacco. - Ebola Screening: : No symptoms or risks identified at this time. ROS: 08:52 Constitutional: Negative for fever, chills, and weight loss, Eyes: Negative for injury, braxton pain, redness, and discharge, ENT: Negative for injury, pain, and discharge, Neck: Negative for injury, pain, and swelling, Cardiovascular: Negative for chest pain, palpitations, and edema, Respiratory: Negative for shortness of breath, cough, wheezing, and pleuritic chest pain, Back: Negative for injury and pain, : Negative for injury, bleeding, discharge, and swelling, MS/Extremity: Negative for injury and deformity, Skin: Negative for injury, rash, and discoloration, Neuro: Negative for headache, weakness, numbness, tingling, and seizure, Psych: Negative for depression, anxiety, suicide ideation, homicidal ideation, and hallucinations, Allergy/Immunology: Negative for hives, rash, and allergies, Endocrine: Negative for neck swelling, polydipsia, polyuria, polyphagia, and marked weight changes, Hematologic/Lymphatic: Negative for swollen nodes, abnormal bleeding, and unusual bruising. 08:52 Abdomen/GI: Positive for abdominal pain, rectal bleeding. Exam: 08:52 Constitutional: This is a well developed, well nourished patient who is awake, alert, braxton and in no acute distress. Head/Face: Normocephalic, atraumatic. Eyes: Pupils equal round and reactive to light, extra-ocular motions intact. Lids and lashes normal. Conjunctiva and sclera are non-icteric and not injected. Cornea within normal limits. Periorbital areas with no swelling, redness, or edema. ENT: Nares patent. No nasal discharge, no septal abnormalities noted. Tympanic membranes are normal and external auditory canals are clear. Oropharynx with no redness, swelling, or masses, exudates, or evidence of obstruction, uvula midline. Mucous membranes moist. Neck: Trachea midline, no thyromegaly or masses palpated, and no cervical lymphadenopathy. Supple, full range of motion without nuchal rigidity, or vertebral point tenderness. No Meningismus. Chest/axilla: Normal chest wall appearance and motion. Nontender with no deformity. No lesions are appreciated. Cardiovascular: Regular rate and rhythm with a normal S1 and S2. No gallops, murmurs, or rubs. Normal PMI, no JVD. No pulse deficits. Respiratory: Lungs have equal breath sounds bilaterally, clear to auscultation and percussion. No rales, rhonchi or wheezes noted. No increased work of breathing, no retractions or nasal flaring. Abdomen/GI: Soft, non-tender, with normal bowel sounds. No distension or tympany. No guarding or rebound. No evidence of tenderness throughout. Back: No spinal tenderness. No costovertebral tenderness. Full range of motion. Skin: Warm, dry with normal turgor. Normal color with no rashes, no lesions, and no evidence of cellulitis. MS/ Extremity: Pulses equal, no cyanosis. Neurovascular intact. Full, normal range of motion. Neuro: Awake and alert, GCS 15, oriented to person, place, time, and situation. Cranial nerves II-XII grossly intact. Motor strength 5/5 in all extremities. Sensory grossly intact. Cerebellar exam normal. Normal gait. Psych: Awake, alert, with orientation to person, place and time. Behavior, mood, and affect are within normal limits. 08:52 Abdomen/GI: Palpation: abdomen is soft and non-tender, Rectal exam: is unremarkable, rectal tone normal, Stool: normal, guaiac negative, hemorrhoid(s), are not appreciated, mass, is not appreciated, swelling, is not appreciated, tenderness, is not appreciated, Liver: no appreciated palpable abnormalities, Hernia: not appreciated. Vital Signs: 07:44 BP 153 / 84; Pulse 96; Resp 18 S; Temp 98.4(TE); Pulse Ox 98% on R/A; Weight 69.85 kg aa5 (R); Height 5 ft. 1 in. (154.94 cm) (R); Pain 0/10; 08:49 BP 140 / 85; Pulse 87; Resp 16 S; Temp 98.8(O); Pulse Ox 97% on R/A; Pain 0/10; aa5 09:30 BP 140 / 80; Pulse 92; Resp 18 S; Pulse Ox 99% on R/A; aa5 10:50 BP 144 / 89; Pulse 93; Resp 16 S; Pulse Ox 96% on R/A; Pain 0/10; aa5 07:44 Body Mass Index 29.10 (69.85 kg, 154.94 cm) aa5 MDM: 07:49 Patient medically screened. [facility] 08:56 Data reviewed: vital signs, nurses notes, lab test result(s), EKG, radiologic studies. [facility] 06/05 08:18 Order name: Basic Metabolic Panel; Complete Time: 09:24 [facility] 06/05 08:18 Order name: CBC with Diff; Complete Time: 08:48 [facility] 06/05 08:18 Order name: LFT's; Complete Time: 09:24 [facility] 06/05 08:18 Order name: Magnesium; Complete Time: 09:24 [facility] 06/05 08:18 Order name: NT PRO-BNP; Complete Time: 09:24 [facility] 06/05 08:18 Order name: PT-INR; Complete Time: 08:48 aa5 06/05 08:18 Order name: Troponin (emerg Dept Use Only); Complete Time: 09:24 aa5 06/05 08:18 Order name: XRAY Chest (1 view) 06/05 08:18 Order name: Type And Screen; Complete Time: 11:05 aa5 06/05 08:19 Order name: Blood Culture Adult (2) aa5 06/05 08:45 Order name: Guiac; Complete Time: 08:56 em1 06/05 08:56 Order name: Lipase; Complete Time: 09:24 braxton 06/05 09:55 Order name: ABO/RH no charge; Complete Time: 11:05 EDMS 06/05 08:18 Order name: EKG; Complete Time: 08:19 aa06/05 08:18 Order name: Cardiac monitoring; Complete Time: 08:18 aa5 06/05 08:18 Order name: EKG - Nurse/Tech; Complete Time: 08:18 aa06/05 08:18 Order name: IV Saline Lock; Complete Time: 08:18 aa06/05 08:18 Order name: Labs collected and sent; Complete Time: 08:18 aa06/05 08:18 Order name: O2 Per Protocol; Complete Time: 08:18 06/05 08:18 Order name: O2 Sat Monitoring; Complete Time: 08:18 aa06/05 10:16 Order name: PO challenge: juice; Complete Time: 10:19 [facility] Administered Medications: 09:10 Drug: NS 0.9% 1000 ml Route: IV; Rate: 1 bolus; Site: right forearm; jl7 10:20 Follow up: IV Status: Completed infusion; IV Intake: 1000ml aa5 09:15 Drug: Magnesium Sulfate 2 grams Route: IVPB; Infused Over: 2 hrs; Site: right forearm; jl7 11:00 Follow up: Response: No adverse reaction; IV Status: Completed infusion aa5 09:27 Not Given (Patient Refused): Zofran 4 mg IVP once; over 2 minutes aa5 09:35 Drug: Magnesium Oxide 400 mg Route: PO; aa5 10:50 Follow up: Response: No adverse reaction aa5 Point of Care Testing: Blood Glucose: 07:58 Blood Glucose: 109 mg/dL; aa5 10:19 Blood Glucose: 56 mg/dL; jb1 10:49 Blood Glucose: 117 mg/dL; aa5 Ranges: Critical Glucose Levels:Adult <50 mg/dl or >400 mg/dl <40 mg/dl or >180 mg/dl Disposition: 06/05/19 09:27 Discharged to Home. Impression: Type 2 diabetes mellitus, Vomiting, Hypomagnesemia. - Condition is Stable. - Discharge Instructions: Type 2 Diabetes Mellitus, Diagnosis, Adult, Hypomagnesemia, Nausea and Vomiting, Adult, Nausea and Vomiting, Adult, [id number], Type 2 Diabetes Mellitus, Diagnosis, Adult, [id number]-[id number]. - Prescriptions for Zofran 4 mg Oral Tablet - take 1 tablet by ORAL route every 12 hours As needed; 20 tablet. magnesium oxide - take 1 tablet by ORAL route 2 times per day; 20 tablet. Pepcid 20 mg Oral Tablet - take 1 tablet by ORAL route every 12 hours for 10 days; 20 tablet. - Medication Reconciliation Form, Thank You Letter, Antibiotic Education, Prescription Opioid Use form. - Follow up: Private Physician; When: 2 - 3 days; Reason: Recheck today's complaints, Continuance of care, Re-evaluation by your physician. - Problem is new. - Symptoms have improved. Signatures: Dispatcher [employer] EDMS Clay Mcadams MD MD cha Calderon, Audri, RN RN aa5 Dylan Barakat RN RN jl7 Corrections: (The following items were deleted from the chart) 11:09 09:27 06/05/2019 09:27 Discharged to Home. Impression: Type 2 diabetes mellitus; aa5 Vomiting; Hypomagnesemia. Condition is Stable. Discharge Instructions: Type 2 Diabetes Mellitus, Diagnosis, Adult, Type 2 Diabetes Mellitus, Diagnosis, Adult, [id number], Nausea and Vomiting, Adult, Nausea and Vomiting, Adult, [id number], Hypomagnesemia. Prescriptions for Zofran 4 mg Oral Tablet - take 1 tablet by ORAL route every 12 hours As needed; 20 tablet, magnesium oxide - take 1 tablet by ORAL route 2 times per day; 20 tablet, Pepcid 20 mg Oral Tablet - take 1 tablet by ORAL route every 12 hours for 10 days; 20 tablet. and Forms are Medication Reconciliation Form, Thank You Letter, Antibiotic Education, Prescription Opioid Use. Follow up: Private Physician; When: 2 - 3 days; Reason: Recheck today's complaints, Continuance of care, Re-evaluation by your physician. Problem is new. Symptoms have improved. braxton
--- NOTE | 2019-06-05 09:26 | ER ---
Nurse's Notes [facility] Name: Chelly Ferguson Age: 63 yrs Sex: Female : 1955 Arrival Date: 06/05/2019 Time: 07:42 Bed 6 Private MD: Diagnosis: Type 2 diabetes mellitus;Vomiting;Hypomagnesemia Presentation: 06/05 07:44 Risk Assessment: Do you want to hurt yourself or someone else? Patient reports no aa5 desire to harm self or others. Initial Sepsis Screen: Does the patient meet any 2 criteria? HR > 90 bpm. Does the patient have a suspected source of infection? No. Patient's initial sepsis screen is negative. Care prior to arrival: None. 07:44 Presenting complaint: Patient states: "I started with nausea last night and I threw up aa5 twice last night". Pt also c/o bright red blood in stool that began last night. Denies abd pain. Reports diarrhea since Friday. Pt states "my blood sugar and blood pressure have been high for a few days, my sugar was 388 yesterday and 349 this morning without even eating breakfast and my blood pressure was 171/100 today". Transition of care: patient was not received from another setting of care. Onset of symptoms was May 2019. 07:44 Acuity: BRADLY 3 aa5 07:44 Method Of Arrival: Ambulatory aa5 Historical: - Allergies: 07:44 No Known Allergies; aa5 - Home Meds: 08:07 atorvastatin calcium 20mg daily [Active]; Calcium 500 + D oral 500mg-125 units once a aa5 day oral [Active]; gabapentin 600 mg Oral tab 1 tab twice a day [Active]; hydrochlorothiazide 12.5 mg Oral tab 1 tab once daily [Active]; lisinopril 10 mg oral tab once daily [Active]; magnesium 400mg twice a day [Active]; metformin 1,000 mg Oral tab 1 tab 2 times per day [Active]; acetaminophen 650 mg oral TbER every 8 hrs as needed [Active]; vitamin D-3 1000 unit once a day [Active]; Januvia 100 mg oral tab 1 tab once daily [Active]; - PMHx: 07:44 Diabetes - NIDDM; Hypertension; aa5 - PSHx: 07:44 Hysterectomy; Cholecystectomy; aa5 - Immunization history:: Adult Immunizations unknown. - Social history:: Smoking status: Patient/guardian denies using tobacco. - Ebola Screening: : No symptoms or risks identified at this time. Screenin:03 Abuse screen: Denies threats or abuse. Nutritional screening: No deficits noted. aa5 Tuberculosis screening: No symptoms or risk factors identified. Fall Risk None identified. Assessment: 07:45 General: Appears comfortable, Behavior is calm, cooperative. Pain: Denies pain. Neuro: aa5 Level of Consciousness is awake, alert, obeys commands, Oriented to person, place, time, situation. Cardiovascular: Heart tones S1 S2 present Rhythm is regular. Respiratory: Airway is patent Respiratory effort is even, unlabored, Respiratory pattern is regular, symmetrical, Breath sounds are clear bilaterally. GI: Abdomen is round non-distended, Bowel sounds present X 4 quads. Abd is soft and non tender X 4 quads. Reports diarrhea, bloody stool, nausea, vomiting. : Denies burning with urination. EENT: No signs and/or symptoms were reported regarding the EENT system. Derm: Skin is pink, warm \\T\\ dry. Musculoskeletal: Range of motion: intact in all extremities. 09:35 Reassessment: Patient is alert, oriented x 3, equal unlabored respirations, skin aa5 warm/dry/pink. Patient denies pain at this time. Awaiting magnesium infusion to complete for d/c home, pt notified of wait time, pt verbalizes understanding. . 10:19 Reassessment: Pt given orange juice and food tray. aa5 10:19 Reassessment: Patient is alert, oriented x 3, equal unlabored respirations, skin aa5 warm/dry/pink. 10:47 Reassessment: Patient is alert, oriented x 3, equal unlabored respirations, skin aa5 warm/dry/pink. Patient denies pain at this time. Pt finished eating, pt tolerated well. Pt states "my sugar dropped because I took my metformin without eating breakfast". Pt states "I was feeling shaky but not anymore, I felt way better after eating" . 11:06 Reassessment: Patient is alert, oriented x 3, equal unlabored respirations, skin aa5 warm/dry/pink. Vital Signs: 07:44 BP 153 / 84; Pulse 96; Resp 18 S; Temp 98.4(TE); Pulse Ox 98% on R/A; Weight 69.85 kg aa5 (R); Height 5 ft. 1 in. (154.94 cm) (R); Pain 0/10; 08:49 BP 140 / 85; Pulse 87; Resp 16 S; Temp 98.8(O); Pulse Ox 97% on R/A; Pain 0/10; aa5 09:30 BP 140 / 80; Pulse 92; Resp 18 S; Pulse Ox 99% on R/A; aa5 10:50 BP 144 / 89; Pulse 93; Resp 16 S; Pulse Ox 96% on R/A; Pain 0/10; aa5 07:44 Body Mass Index 29.10 (69.85 kg, 154.94 cm) aa5 ED Course: 07:42 Patient arrived in ED. as 07:44 Arm band placed on Patient placed in an exam room, on a stretcher. aa5 07:44 Patient has correct armband on for positive identification. Placed in gown. Bed in low aa5 position. Call light in reach. Side rails up X2. 07:44 customer supply coordinator on. Pulse ox on. NIBP on. aa5 07:45 Clay Mcadams MD is Attending Physician. [facility] 07:55 Noelle Duff, ROX is Primary Nurse. aa5 08:01 Triage completed. aa5 08:15 Initial lab(s) drawn, by me, sent to lab. Inserted saline lock: 20 gauge in right aa5 antecubital area, using aseptic technique. Blood collected. 08:15 First set of blood cultures drawn by me. aa5 08:30 Second set of blood cultures drawn by me. aa5 08:32 XRAY Chest (1 view) In Process Unspecified. EDMS 10:20 Diet: Patient given juice. jb1 11:00 No provider procedures requiring assistance completed. IV discontinued, intact, aa5 bleeding controlled, No redness/swelling at site. Pressure dressing applied. Administered Medications: 09:10 Drug: NS 0.9% 1000 ml Route: IV; Rate: 1 bolus; Site: right forearm; jl7 10:20 Follow up: IV Status: Completed infusion; IV Intake: 1000ml aa5 09:15 Drug: Magnesium Sulfate 2 grams Route: IVPB; Infused Over: 2 hrs; Site: right forearm; jl7 11:00 Follow up: Response: No adverse reaction; IV Status: Completed infusion aa5 09:27 Not Given (Patient Refused): Zofran 4 mg IVP once; over 2 minutes aa5 09:35 Drug: Magnesium Oxide 400 mg Route: PO; aa5 10:50 Follow up: Response: No adverse reaction aa5 Point of Care Testing: Blood Glucose: 07:58 Blood Glucose: 109 mg/dL; aa5 10:19 Blood Glucose: 56 mg/dL; jb1 10:49 Blood Glucose: 117 mg/dL; aa5 Ranges: Intake: 10:20 IV: 1000ml; Total: 1000ml. aa5 Outcome: 09:27 Discharge ordered by . braxton 11:06 Discharged to home ambulatory, with family. aa5 11:06 Condition: improved 11:06 Discharge instructions given to patient, Instructed on discharge instructions, follow up and referral plans. medication usage, Demonstrated understanding of instructions, follow-up care, medications, Prescriptions given X 3. 11:09 Patient left the ED. aa5 Signatures: Dispatcher [employer] EDMS Ozzy Quesada jb1 Clay Mcadams MD MD cha Martinez, Amelia as Calderon, Audri, RN RN aa5 Dylan Barakat RN RN jl7 Corrections: (The following items were deleted from the chart) 10:29 10:16 Reassessment: Pt given orange juice and food tray. aa5 aa5
[2019-06-05] MEDS ORDERED: MAGNESIUM OXIDE 400 MG TAB ONE (09:32)
[2019-06-05 11:17] VITALS: BP 140/85; TEMP 98.8; O2SAT 97
--- NOTE | 2019-06-05 12:17 | RAD REPORT ---
EXAM DESCRIPTION: RAD - Chest Single View - 06/05/2019 8:31 am CLINICAL HISTORY: MD joseph Chest pain. COMPARISON: Abdomen Acute Series dated 03/11/2018; CHEST PA AND LAT 2 VIEW dated 02/20/2014; CHEST PA AND LAT 2 VIEW dated 12/22/2010; CHEST SINGLE VIEW dated 12/07/2010 FINDINGS: Portable technique limits examination quality. The lungs are grossly clear. The heart is mildly prominent in size. No displaced fractures.
--- NOTE | 2019-06-06 10:25 | EKG ---
Test Date: 2019-06-05 Test Time: 08:02:43 Deputy County Attorney: ROYA MEASUREMENT RESULTS: Intervals: Rate: 97 LA: 134 QRSD: 68 QT: 354 QTc: 449 [place]: P: 47 LA: 134 QRS: 11 T: 61 INTERPRETIVE STATEMENTS: Normal sinus rhythm Abnormal ECG Compared to ECG 02/20/2014 12:41:35 Sinus tachycardia no longer present Myocardial infarct finding no longer present Electronically Signed On 06-06-19 10:24:18 CDT by Donald Mitchell
== END 2019-06-05 11:09 | disposition home or self-care (01) ==
LOC: ER 07:38
DX: E11.9 Type 2 diabetes mellitus without complications (principal); R11.10 Vomiting, unspecified; E83.42 Hypomagnesemia; I10 Essential (primary) hypertension
CPT/HCPCS: 96365; 93005; 87040 ×2; 85025; 80048; 36415; 86900; 83735; 86850; 85610; 86901; 82962 ×3; 80076; 82272; 84484; 83690; 83880; 71045; 99284; 96366; J3475; J7030; J2405

== ENCOUNTER 2020-08-15 12:45 | Inpatient (IN) | payer OTHER ==
--- OUTSIDE RECORDS SUMMARY | 2020-08-15 12:48 | XMS REPORT | Continuity of Care Document ---
:1955 Author Organization [facility] t Address [address] [place] [address] Care Team Providers Name Role Phone Unavailable Unavailable Unavailable Problems Condition Condition Condition Status Onset Resolution Last Treating Co mments Source Name Details Category Date Date Treatment Clinician Date Hyperlipem Hyperlipem Problem Active [facility], mixed ia, mixed [facility] - [facility] Allergic Allergic Problem [facility], [facility] - seasonal seasonal Memori a l Outpat[facility] ent Clinics Proteinuri Proteinuri Diagnosis Active [facility], a, [facility] - unspecifie unspecifie Me moria d d l Outpati ent Clinics Hyperkalem Hyperkalem Problem Active [facility]ics Hypomagnes Hypomagnes Problem Active [facility] emia emia [facility] Vitamin D Vitamin D Diagnosis Active [facility] deficiency deficiency Angela kes - [facility] ent Clinics Benign Benign Diagnosis Active [facility] essential essential Luke s - hypertensi hypertensi Me moria on on l Outpati ent Clinics Arthropath Arthropath Diagnosis Active [facility] y due to y due to [facility] - diabetic diabetic Memori a neuropathy neuropathy l Outpati ent Clinics Diabetes Diabetes Problem Active [facility] mellitus mellitus [facility] - type 2, type 2, Memoria uncontroll uncontroll l ed, ed, Outpati without without ent complicati complicati Cl inics ons ons Malaise Malaise Diagnosis Active [facility] and and [facility] - fatigue fatigue [facility] ent Clinics Constipati Constipati Problem Active [facility] on, on, [facility] - unspecifie unspecifie Me moria d d l constipati constipati Ou tpati on type on type ent Clinics Diverticul Diverticul Problem Active [facility] itis of itis of [facility] - large large Memoria intestine intestine l without without Outpati perforatio perforatio en t n or n or Clinics abscess abscess without without bleeding bleeding Diverticul Diverticul Problem Active [facility] itis itis [facility] Adult BMI Adult BMI Problem Active [facility] 30.0-30.9 30.0-30.9 Luke s - kg/sq m kg/sq m Memoria l Outpati ent Clinics CKD CKD Problem Active [facility] (chronic (chronic [facility] - kidney kidney Memoria disease) disease) l stage 3, stage 3, Outpat i GFR 30-59 GFR 30-59 ent ml/min ml/min Clinics Type 2 Type [address] [facility] diabetes diabetes [facility] - mellitus mellitus Memori a with with l hyperglyce hyperglyce Ou tpati richelle, richelle, ent without without Clinics long-term long-term current current use of use of insulin insulin History of History of Diagnosis Active [facility] noncomplia noncomplia Angela kes - nce with nce with Memori a medical medical l treatment treatment Outp ati ent Clinics Allergies, Adverse Reactions, Alerts This patient has no known allergies or adverse reactions. Medications Ordered Filled Start Stop Current Ordering Indication Dosage Frequency Signature Comments Components Source Medication Medication Date Date Medication? Clinician (SIG) Name Name One Touch One Touch Yes Lazaro monitor [facility] Ultra Test Ultra Test 3-04 Evans blood L ukes - Strips Strips 00:00: glucose Memori a 00 l [facility] Mag64 Mag64 Yes Lazaro [address] [facility] Januvia Januvia Yes Lazaro [address] [facility] Gabapentin Gabapentin Yes Lazaro [address] [facility] Vitamin D3 Vitamin D3 Yes Lazaro [address] [facility] Lipitor Lipitor Yes Lazaro [address] [facility] Lisinopril Lisinopril Yes Lazaro [address] [facility] Metformin Metformin Yes Lazaro [address] [facility] [address] HCl HCl Evans with a [facility] - meal [facility]oria l [facility] OneTouch OneTouch Yes Lazaro USE [address] [facility] Ultra Test Ultra Test Evans STRIP TO [facility]ukes - CHECK Memoria GLUCOSE l ONCE DAILY Outpati ent Clinics Immunizations Ordered Filled Immunization Date Status Comments [facility] e Immunization Name Name Pooja Patton 2019-07-[address] [facility] - 00:00[facility]00 [facility] Outpatient [facility] Procedures This patient has no known procedures. Encounters Start End Encounter Admission Attending Care Care Encounter Source Date/Time Date/Time Type Type Clinicians Facility Department ID 2020-07-12 2020-07-12 [facility] [id number] [facility] 08:00:00 08:00:00 [employer] [facility] Family Medicine l Medicine Outpati ent Clinics 2020-07-07 2020-07-07 [facility] [id number] 10:04:00 10:04:00 t [email or web address] [facility] Medicine l Medicine Outpati ent Clinics 2020-05-19 2020-05-19 [facility] [id number] [address] 13:55:00 13:55:00 [employer] [facility] Medicine l Medicine Outpati ent Clinics 2020-05-18 2020-05-18 [facility] [id number] [address] 10:59:00 10:59:00 [employer] [facility] Medicine l Medicine Outpati ent Clinics 2020-04-07 2020-04-07 [facility] [id number] [address] 08:42:00 08:42:00 [facility] [employer] [facility] [employer] [facility] Medicine l Medicine Outpati ent Clinics 2020-04-07 2020-04-07 [facility] [id number] [address] 08:30:00 08:30:00 [employer] [facility] Medicine l Medicine Outpati ent Clinics 2020-03-09 2020-03-09 [facility] [id number] 16:58:00 16:58:00 [employer] [facility] [employer] [facility] Medicine l Medicine Outpati ent Clinics 2020-02-28 2020-02-28 [facility] [id number] [address] 09:09:00 09:09:00 [employer] [facility] Medicine l Medicine Outpati ent Clinics 2020-01-06 2020-01-06 [facility] [id number] 09:15:00 09:15:[address] Luke s - Drive [facility] Family Medicine l Medicine Outpati ent Clinics 2020-01-06 2020-01-06 [facility] [id number] 09:15:00 09:15:[address] Luke s - Drive [facility] Medicine l Medicine Outpati ent Clinics 2019-12-29 2019-12-29 [facility] [id number] [address] 08:41:00 08:41:00 [place] [employer] Luke s - Drive [facility] Family Medicine l Medicine Outpati ent Clinics 2019-10-07 2019-10-07 [facility] [id number] 08:00:00 08:00:00 [place] [employer] s - Drive [facility] Medicine l Medicine Outpati ent Clinics 2019-09-29 2019-09-29 [facility] [id number] 17:11:00 17:11:00 [place] [employer] s - Drive [facility] Medicine l Medicine Outpati ent Clinics 2019-08-05 2019-08-05 [facility] [id number] 08:00:00 08:00:00 [place] [employer] s - Drive [facility] Medicine l Medicine Outpati ent Clinics 2019-07-28 2019-07-28 [facility] [id number] 11:44:00 11:44:00 [place] [employer] s - Drive [facility] Medicine l Medicine Outpati ent Clinics 2019-07-01 2019-07-01 [facility] [id number] 08:00:00 08:00:00 [place] [employer] Luke s - Drive [facility] Medicine l Medicine Outpati ent Clinics 2019-02-25 2019-02-25 [facility] [id number] 13:04:00 13:04:00 [place] [employer] s - Drive [facility] Medicine l Medicine Outpati ent Clinics 2019-02-15 2019-02-15 [facility] [id number] 13:46:00 13:46:00 [place] [employer] s - Drive [facility] Medicine Outpati ent Clinics 2019-01-21 2019-01-21 [facility] [id number] 08:30:00 08:30:00 [place] [employer] s - Drive [facility] l Medicine Outpati ent Clinics 2018-12-28 2018-12-28 [facility] [id number] 14:49:00 14:49:00 [place] [employer] s - Drive [facility] Medicine Outpati ent Clinics 2018-12-23 2018-12-23 [facility] [id number] 08:30:00 08:30:00 [place] [employer] s - Drive [facility] Medicine Outpati ent Clinics 2018-11-09 2018-11-09 [facility] [id number] 09:09:00 09:09:00 t [employer] s - Drive [facility] Medicine Outpati ent Clinics 2018-09-04 2018-09-04 [facility] [id number] 09:30:00 09:30:00 [place] [employer] s - Drive [facility] Medicine Outpati ent Clinics 2018-06-05 2018-06-05 [facility] [id number] 08:15:00 08:15:00 [place] [employer] s - Drive [facility] Medicine Outpati ent Clinics 2018-04-02 2018-04-02 [facility] [id number] 09:00:00 09:00:00 [place] [employer] s - Drive [facility] Medicine Outpati ent Clinics 2018-03-05 2018-03-05 [facility] [id number] 08:15:00 08:15:00 t [employer] s - Drive [facility] Medicine Outpati ent Clinics Results This patient has no known results.
--- OUTSIDE RECORDS SUMMARY | 2020-08-15 12:48 | XMS REPORT ---
:1955 Author Organization [employer]Clinical[employer] Care Team Providers Name Role Phone Nathan Lazaro Provider Role Unavailable Allergies No Known Allergies Problems Problem Type Condition Code Onset Dates Condition Statu s Problem Benign essential hypertension I10 Active Problem Diabetes mellitus type 2, E11.9 Ac tive uncontrolled, without complications Problem Malaise and fatigue R53.81 Active Problem Type 2 diabetes mellitus with E11.65 Active hyperglycemia, without long-term current use of insulin Problem Adult BMI 30.0-30.9 kg/sq m Z68.30 Active Problem CKD (chronic kidney disease) stage N18.3 Active 3, GFR 30-59 ml/min Problem Allergic rhinitis, seasonal J30.2 Active Problem Proteinuria, unspecified R80.9 Act devon Problem Diverticulitis of large intestine K57.32 Active without perforation or abscess without bleeding Problem Constipation, unspecified K59.00 Ac tive constipation type Problem Hypomagnesemia E83.42 Active Problem Hyperkalemia E87.5 Active Problem Diverticulitis K57.92 Active Problem Vitamin D deficiency E55.9 Active Problem Hyperlipemia, mixed E78.2 Active Problem 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
--- OUTSIDE RECORDS SUMMARY | 2020-08-15 12:48 | XMS REPORT ---
[...] due to diabetic E11.610 Active neuropathy Medications No Known Medications Results No Known Results Summary Purpose eClinicalWorks Submission
--- OUTSIDE RECORDS SUMMARY | 2020-08-15 12:49 | XMS REPORT ---
:1955 Author Organization eClinicalWorks Care Team Providers Name Role Phone Nathan Lazaro Provider Role Unavailable Allergies, Adverse Reactions, Alerts Substance Reaction Event Type N.K.D.A. 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 Problem Benign essential hypertension I10 Active Problem Diabetes mellitus type 2, E11.9 Ac tive uncontrolled, without complications Problem Malaise and fatigue R53.81 Active Problem Type 2 diabetes mellitus with E11.65 Active hyperglycemia, without long-term current use of insulin Problem Adult BMI 30.0-30.9 kg/sq m Z68.30 Active Assessment Hypomagnesemia E83.42 Active Assessment Malaise and fatigue R53.81 Active Problem CKD (chronic kidney disease) stage N18.3 Active 3, GFR 30-59 ml/min Assessment Hyperlipemia, mixed E78.2 Active Problem Allergic rhinitis, seasonal J30.2 Active Problem Proteinuria, unspecified R80.9 Act devon Problem Diverticulitis of large intestine K57.32 Active without perforation or abscess without bleeding Problem Constipation, unspecified K59.00 Ac tive constipation type Assessment Type 2 diabetes mellitus with E11.65 Active hyperglycemia, without long-term current use of insulin Assessment Benign essential hypertension I10 Active Assessment Proteinuria, unspecified R80.9 Act devon Problem Hypomagnesemia E83.42 Active Problem Hyperkalemia E87.5 Active Problem Diverticulitis K57.92 Active Problem Hyperlipemia, mixed E78.2 Active Medications Medication Code Code Instructions Start End Status Dosage System Date Date Mag64 [facility] 87881889656 64 MG Orally Active 1 table t Twice a day Januvia [facility] 65627081959 100 MG Orally Active 1 tabl et Once a day Gabapentin [facility] 08302689666 600 MG Orally Active 1 t ablet Twice a day Vitamin D3 [facility] 81357595271 2000 UNIT Orally Active 1 capsule Once a day Lipitor [facility] 95654744954 40 MG Orally Active 1 table t Once a day Lisinopril [facility] 17195299181 30 MG Orally Active 1 ta blet Once a day Metformin HCl [facility] 62264682537 1000 MG Orally Active 1 tablet Twice a day with a meal One Touch NDC 0 1 SUB Q once Active monitor Ultra Test daily blood Strips glucose OneTouch Ultra NDC 0 - In Vitro once Active U SE 1 Test daily STRIP TO CHECK GLUCOSE ONCE DAILY Results No Known Results Summary Purpose eClinicalWorks Submission
[2020-08-15 14:19] LABS: Absolute Lymphocytes (CBC) 2.4 K/uL (0.7-4.9); Basophils % 0.7 % (0-1.3); Hematocrit 37.1 % (36.0-45.0); Lymphocytes % 16.4 % (15.3-44.8); MPV 8.5 fL (7.6-11.3)
[2020-08-15 14:38] LABS: Bilirubin Total 0.4 mg/dL (0.2-1.0); Potassium 4.6 mmol/L (3.5-5.1)
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
[2020-08-15] MEDS ORDERED: SILVER SULFADIAZINE 1% 25 GM TOP ONE (15:51)
[2020-08-15] MEDS ORDERED: VANCOMYCIN/NS 1 gm 1 GM/250 ML BAG IVPB ONE (16:00)
[2020-08-15] MEDS ORDERED: TETANUS & DIPHTHERIA TOX,ADULT 0.5 ML VIAL ONE (17:50)
[2020-08-15] MEDS: NA CHLORIDE 0.9% 1,000 ML IV SCH (18:21)
[2020-08-15] MEDS ORDERED: ACETAMINOPHEN 500 MG TAB PO PRN (18:21)
[2020-08-15] MEDS ORDERED: ONDANSETRON 4 MG/2 ML VIAL IV PRN (18:21)
[2020-08-15] MEDS ORDERED: HYDROMORPHONE HCL 0.5 MG/0.5 ML INJ IV PRN (18:34)
[2020-08-15 18:46] VITALS: O2SAT 98; BMI 29.1
[2020-08-15] MEDS: SILVER SULFADIAZINE 1% 25 GM TOP SCH (21:00)
[2020-08-15] MEDS: Levofloxacin 750mg IV 750 MG/150 ML BAG IV SCH (21:55)
[2020-08-16] MEDS ORDERED: VANCOMYCIN 1 GM/VIAL ONE (02:32)
[2020-08-16] MEDS ORDERED: NA CHLORIDE 0.9% 250 ML ONE (02:32)
[2020-08-16] MEDS ORDERED: VANCOMYCIN/NS 1 gm 1 GM/250 ML BAG IVPB SCH (04:00)
[2020-08-16 04:31] LABS: Absolute Lymphocytes (CBC) 2.1 K/uL (0.7-4.9); Basophils % 0.6 % (0-1.3); Hematocrit 32.5 % (36.0-45.0); Lymphocytes % 18.4 % (15.3-44.8); MPV 8.7 fL (7.6-11.3); RBC Red Blood Cell Count 3.73 M/uL (3.86-4.86)
[2020-08-16] MEDS: NA CHLORIDE 0.9% 1,000 ML IV SCH ×2 (06:40→17:34)
[2020-08-16] MEDS: lisinopriL 10 MG TAB PO SCH (09:18)
[2020-08-16] MEDS: METFORMIN HCL 500 MG TAB PO SCH ×2 (09:19→17:33)
[2020-08-16] MEDS: SILVER SULFADIAZINE 1% 25 GM TOP SCH ×2 (09:19→20:28)
[2020-08-16] MEDS: VITAMIN D 1000 UNIT TAB PO SCH (09:19)
[2020-08-16] MEDS: SITAGLIPTIN PHOS 100 MG TAB PO SCH (09:19)
[2020-08-16] MEDS: Levofloxacin 750mg IV 750 MG/150 ML BAG IV SCH (20:27)
[2020-08-16] MEDS ORDERED: ATORVASTATIN 40 MG TAB PO SCH (21:00)
[2020-08-16] MEDS ORDERED: GABAPENTIN 300 MG CAP PO SCH (21:00)
[2020-08-17] MEDS ORDERED: VANCOMYCIN 1.25 GM in NA CHLORIDE 0.9% 250 ML IVPB SCH (06:00)
[2020-08-17] MEDS: lisinopriL 10 MG TAB PO SCH (08:49)
[2020-08-17] MEDS: METFORMIN HCL 500 MG TAB PO SCH (08:49)
[2020-08-17] MEDS: VITAMIN D 1000 UNIT TAB PO SCH (08:49)
[2020-08-17] MEDS: SILVER SULFADIAZINE 1% 25 GM TOP SCH (08:50)
[2020-08-17] MEDS: SITAGLIPTIN PHOS 100 MG TAB PO SCH (09:00)
[2020-08-17] MEDS: NA CHLORIDE 0.9% 1,000 ML IV SCH (09:01)
[2020-08-17 12:04] VITALS: BP 128/71; TEMP 97.8
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
== END 2020-08-17 15:38 | disposition home or self-care (01) | DRG 935 ==
LOC: ER 12:45 → 2ND 18:11
PROVIDERS: ADMIT Hospitalist; ATTEND Hospitalist
DX: T25.221A Burn of second degree of right foot, initial encounter (principal); L03.115 Cellulitis of right lower limb; E78.5 Hyperlipidemia, unspecified; I10 Essential (primary) hypertension; E11.40 Type 2 diabetes mellitus with diabetic neuropathy, unspecified; X10.1XXA Contact with hot food, initial encounter; Z90.49 Acquired absence of other specified parts of digestive tract; Z90.710 Acquired absence of both cervix and uterus; Z79.84 Long term (current) use of oral hypoglycemic drugs; Z79.899 Other long term (current) drug therapy; Z20.828 Contact with and (suspected) exposure to other viral communicable diseases
CPT/HCPCS: 36415; 80048; 80053; 82947; 83605; 84145; 85025; 87040; 90471; 90714; 96365; 96366; 99251; 99285; J3370; J7030; J7050; U0002

== ENCOUNTER 2021-11-09 09:36 | Emergency (ER) | payer OTHER ==
--- OUTSIDE RECORDS SUMMARY | 2021-11-09 09:43 | XMS REPORT | Continuity of Care Document ---
:1955 Author Organization [facility] t Address [address] [place] [address] Care Team Providers Name Role Phone Unavailable Unavailable Unavailable Problems This patient has no known problems. Allergies, Adverse Reactions, Alerts This patient has no known allergies or adverse reactions. Medications Ordered Filled Start Stop Current Ordering Indication Dosage Frequency Signature Comments Components Source Medication Medication Date Date Medication? Clinician (SIG) Name Name One Touch One Touch 2019-0 Yes Lazaro monitor [facility] Ultra Test Ultra Test 3-04 Evans blood L ukes - Strips Strips 00:00: glucose [facility] Mag64 Mag64 Yes Lazaro [address] [facility] Januvia Januvia Yes Lazaro [address] [facility] Gabapentin Gabapentin Yes Lazaro [address] [facility] Vitamin D3 Vitamin D3 Yes Lazaro [address] [facility] Lipitor Lipitor Yes Lazaro [address] [facility] Lisinopril Lisinopril Yes Lazaro [address] [facility] Metformin Metformin Yes Lazaro [address] [facility] HCl HCl Evans with a [facility] OneTouch OneTouch Yes Lazaro USE [address] [facility] Ultra Test Ultra Test Evans STRIP TO [facility] GLUCOSE l ONCE DAILY [facility] Immunizations Ordered Filled Immunization Date Status Comments [facility] e Immunization Name Name Pooja Patton 2019-07-[address] [facility] Procedures This patient has no known procedures. Encounters Start End Encounter Admission Attending Care Care Encounter Source Date/Time Date/Time Type Type Clinicians Facility Department ID 2021-11-07 2021-11-07 ambulatory [facility] [id number] [facility] 2021-08-08 2021-08-08 Outpatient [facility] [id number] [facility] 2021-05-20 2021-05-20 Out[facility] [id number] [facility] 2021-05-09 2021-05-09 Outpatient [facility] [id number] [facility] 2021-05-09 2021-05-09 Outpatient [facility] [id number] [facility] 2021-01-24 2021-01-24 Outpatient [facility] [id number] [facility] 2021-01-09 2021-01-09 Outpatient [facility] [id number] [facility] 2020-11-22 2020-11-22 Outpatient [facility] [id number] [facility] 2020-11-10 2020-11-10 Outpatient [facility] [id number] [facility] 2020-10-11 2020-10-11 Outpatient [facility] [id number] [facility] 2020-10-06 2020-10-06 Outpatient [facility] [id number] [facility] 2020-08-24 2020-08-24 Outpatient [facility] [id number] [facility] 2020-07-12 2020-07-12 [facility] [id number] [address] 08:00:00 08:00:00 t [facility] [facility] - [facility] On[facility] Medicine Outpat[facility] ent Clinics 2020-07-07 2020-07-07 [facility] [id number] [address] 10:04:00 10:04:00 t [employer] s - [facility] Oncology [facility] Medicine Out[facility] Clinics 2020-05-19 2020-05-19 [facility] [id number] [address] 13:55:00 13:55:00 t [employer] s - Drive [facility] Medicine Outpati ent Clinics 2020-05-18 2020-05-18 [facility] [id number] 10:59:00 10:59:00 t [employer] - L[facility] Oncology [facility] Medicine l Medicine Outpati ent Clinics 2020-04-07 2020-04-07 [facility] [id number] 08:42:00 08:42:[address] [facility] [facility] Road [facility] Medicine l Medicine Outpati ent Clinics 2020-04-07 2020-04-07 [facility] [id number] 08:30:00 08:30:00 t [employer] s - Drive [facility] Medicine l Medicine Outpati ent Clinics 2020-03-09 2020-03-09 [facility] [id number] [address] 16:58:00 16:58:[address] [facility] [employer] - Road [facility] Medicine l Medicine Outpati ent Clinics 2020-02-28 2020-02-28 [facility] [id number] 09:09:00 09:09:00 t Flash Valet s - Drive [facility] Clinics 2020-01-06 2020-01-06 [facility] [id number] [address] 09:15:00 09:15:00 t Rodanthe Rodanthe [employer] Oncology Luke s - Drive [facility] Medicine l Medicine Outpati ent Clinics 2020-01-06 2020-01-06 [facility] [id number] 09:15:00 09:15:00 t Rodanthe Rodanthe [employer] Oncology [employer] - Drive [facility] Medicine l Medicine Outpati ent Clinics 2019-12-29 2019-12-29 [facility] [id number] 08:41:00 08:41:00 t Rodanthe Rodanthe [employer] Oncology [employer] - Drive [facility] Medicine l Medicine Outpati ent Clinics 2019-10-07 2019-10-07 [facility] [id number] 08:00:00 08:00:00 t Rodanthe Rodanthe [employer] s - Drive [facility] Medicine l Medicine Outpati ent Clinics 2019-09-29 2019-09-29 [facility] [id number] 17:11:00 17:11:00 t Rodanthe Rodanthe [employer] - Drive [facility] Medicine l Medicine Outpati ent Clinics 2019-08-05 2019-08-05 [facility] [id number] 08:00:00 08:00:00 t Rodanthe [employer] s - Drive [facility] Medicine l Medicine Outpati ent Clinics 2019-07-28 2019-07-28 [facility] [id number] 11:44:00 11:44:00 t Rodanthe Rodanthe [employer] Oncology [employer] - Drive [facility] Medicine l Medicine Outpati ent Clinics 2019-07-01 2019-07-01 [facility] [id number] 08:00:00 08:00:00 t Rodanthe Rodanthe [employer] - Drive [facility] Medicine l Medicine Outpati ent Clinics 2019-02-25 2019-02-25 [facility] [id number] 13:04:00 13:04:00 t Rodanthe Rodanthe [employer] Oncology [employer] - Drive [facility] Medicine l Medicine Outpati ent Clinics 2019-02-15 2019-02-15 [facility] [id number] 13:46:00 13:46:[address] Luke s - Drive [facility] Medicine Outpati ent Clinics 2019-01-21 2019-01-21 [facility] [id number] 08:30:00 08:30:[address] Luke s - Drive [facility] Medicine Outpati ent Clinics 2018-12-28 2018-12-28 [facility] [id number] 14:49:00 14:49:[address] [employer] - Drive [facility] Medicine Outpati ent Clinics 2018-12-23 2018-12-23 [facility] [id number] 08:30:00 08:30:00 t Rodanthe Rodanthe [employer] Oncology [employer] - Drive [facility] Medicine Outpati ent Clinics 2018-11-09 2018-11-09 [facility] [id number] 09:09:00 09:09:00 t Rodanthe Rodanthe [employer] Oncology [employer] - Drive [facility] Medicine Outpati ent Clinics 2018-09-04 2018-09-04 [facility] [id number] 09:30:00 09:30:00 t Rodanthe Rodanthe [employer] Oncology [employer] - Drive [facility] Medicine Outpati ent Clinics 2018-06-05 2018-06-05 [facility] [id number] 08:15:00 08:15:00 t Rodanthe Rodanthe [employer] - Drive [facility] Medicine Outpati ent Clinics 2018-04-02 2018-04-02 [facility] [id number] 09:00:00 09:00:00 t Rodanthe Rodanthe [employer] Oncology [employer] - Drive [facility] Medicine Outpati ent Clinics 2018-03-05 2018-03-05 [facility] [id number] 08:15:00 08:15:00 t Rodanthe Rodanthe [employer] [facility] - Drive [facility] Medicine Outpati ent Clinics Results This patient has no known results.
[2021-11-09 11:08] LABS: Hematocrit 35.8 % (36.0-45.0); MPV 7.7 fL (7.6-11.3); RBC Red Blood Cell Count 3.88 M/uL (3.86-4.86)
[2021-11-09 11:11] LABS: Protime INR 0.98
[2021-11-09 11:38] LABS: Albumin 3.7 g/dL (3.4-5.0); Bilirubin Direct 0.1 mg/dL (0-0.2); Bilirubin Total 0.4 mg/dL (0.2-1.0); Potassium 5.5 mmol/L (3.5-5.1); Protein, Total 7.4 g/dL (6.4-8.2); Troponin High Sensitivity 7.3 pg/mL (<58.9)
--- NOTE | 2021-11-09 11:49 | RAD REPORT ---
EXAM DESCRIPTION: CT - Chest For Pe Angio - 11/09/2021 11:41 am CLINICAL HISTORY: sob, elevated d-dimer COMPARISON: CTANGIO CHEST FOR PE dated 02/20/2014 FINDINGS: Chest Wall: No suspicious thyroid nodules or pathologic lymphadenopathy. Lungs: No acute abnormality. Pleura: No significant effusions or pneumothorax. Mediastinum/diane: No pathologic lymphadenopathy. Pulmonary arteries/Aorta: No filling defect identified. No aortic aneurysm. Heart: No significant pericardial effusion. Normal heart size. Multi-vessel coronary artery disease. Upper abdomen: No acute abnormality. Bones: No acute abnormality. All CT scans are performed using dose optimization technique as appropriate and may include automated exposure control or mA/KV adjustment according to patient size. IMPRESSION: Negative for pulmonary embolism. No other acute findings identified.
[2021-11-09] MEDS ORDERED: MAGNESIUM SULFATE 1 gm IVPB 1 GM/100 ML BAG IV ONE (12:25)
--- NOTE | 2021-11-09 12:48 | RAD REPORT ---
EXAM DESCRIPTION: RAD - Chest Single View - 11/09/2021 12:32 pm CLINICAL HISTORY: SOB COMPARISON: Chest Single View dated 06/05/2019; Abdomen Acute Series dated 03/11/2018; CHEST PA AND LA T 2 VIEW dated 02/20/2014; CHEST PA AND LAT 2 VIEW dated 12/22/2010 FINDINGS: Lines: None. Lungs: No evidence of edema or pneumonia. Pleural: No significant pleural effusions or pneumothorax. Cardiac: The heart size is within normal limits. Bones: No acute fractures. Other: IMPRESSION: No acute cardiopulmonary disease.
[2021-11-09] MEDS ORDERED: NA CHLORIDE 0.9% 500 ML ONE (13:03)
[2021-11-09 17:40] LABS: Potassium 5.6 mmol/L (3.5-5.1)
[2021-11-09] MEDS ORDERED: INSULIN -REGULAR HUMAN 50 UNIT/0.5 ML ML ONE (18:06)
[2021-11-09] MEDS ORDERED: ALBUTEROL 2.5 MG/3 ML NEB SOL ONE (18:08)
[2021-11-09] MEDS ORDERED: D50W 50 ML IV ONE (18:08)
[2021-11-09] MEDS ORDERED: SOD POLYSTYREN SUL 15 GM/60 ML UCUP ONE (18:08)
[2021-11-09] MEDS ORDERED: CALCIUM GLUCONATE 1 GM IVPB 1 GM/100 ML BAG IV ONE (18:08)
[2021-11-09 23:00] LABS: Potassium 4.9 mmol/L (3.5-5.1)
--- NOTE | 2021-11-09 23:20 | ER ---
Nurse's Notes [facility] Name: Chelly Ferguson Age: 65 yrs Sex: Female : 1955 Arrival Date: 11/09/2021 Time: 09:45 Bed 13 Private MD: Diagnosis: Coronavirus infection, unspecified;Hyperkalemia-Resolved;Hypomagnesemia Presentation: 11/09 10:25 Chief complaint: Patient states: Tested positive for Covid on Friday; states SOB and vg1 no taste or smell, and diarrhea x1 week. Coronavirus screen: Vaccine status: Patient reports receiving the 2nd dose of the covid vaccine. Client denies travel out of the [place] in the last 14 days. Ebola Screen: Patient negative for fever greater than or equal to 101.5 degrees Fahrenheit, and additional compatible Ebola Virus Disease symptoms. Initial Sepsis Screen: Does the patient meet any 2 criteria? No. Patient's initial sepsis screen is negative. Does the patient have a suspected source of infection? No. Patient's initial sepsis screen is negative. Risk Assessment: Do you want to hurt yourself or someone else? Patient reports no desire to harm self or others. Onset of symptoms was November 02, 2021. 10:25 Method Of Arrival: Ambulatory vg1 10:25 Acuity: BRADLY 3 vg1 Triage Assessment: 10:28 General: Appears in no apparent distress. comfortable, Behavior is calm, cooperative. vg1 Pain: Denies pain. Respiratory: Reports shortness of breath at rest on exertion cough that is Airway is patent Respiratory effort is even, unlabored, Onset: The symptoms/episode began/occurred x 1 week ago, the patient has mild shortness of breath. Historical: - Allergies: 10:28 No Known Allergies; vg1 - Home Meds: 10:28 gabapentin 600 mg Oral tab 1 tab twice a day [Active]; atorvastatin calcium 20mg daily vg1 [Active]; magnesium 400mg twice a day [Active]; Magnesium Oxide Oral [Active]; metformin 1,000 mg Oral tab 1 tab 2 times per day [Active]; Jardiance 10 mg Oral tab 1 tab once daily [Active]; 11:24 acetaminophen 650 mg Oral TbER every 8 hrs as needed [Active]; Calcium 500 + D cb5 500mg-125 units once a day Oral [Active]; Glucophage 1,000 mg Oral tab 1 tab 2 times per day [Active]; hydrochlorothiazide 12.5 mg Oral tab 1 tab once daily [Active]; Januvia 100 mg Oral tab 1 tab once daily [Active]; Lipitor 20 mg Oral tab 1 tab once daily [Active]; lisinopril 10 mg Oral tab once daily [Active]; vitamin D-3 1000 unit once a day [Active]; - PMHx: 10:28 Diabetes - NIDDM; Hyperlipidemia; Hypertension; vg1 - Immunization history:: Client reports receiving the 2nd dose of the Covid vaccine. - Social history:: Smoking status: Patient denies any tobacco usage or history of. Screenin:40 Abuse screen: Denies threats or abuse. Denies injuries from another. Nutritional cb5 screening: No deficits noted. Tuberculosis screening: No symptoms or risk factors identified. Fall Risk None identified. Assessment: 10:45 General: Appears comfortable, obese, well groomed, well nourished, Behavior is calm, cb5 cooperative, appropriate for age. Pain: Denies pain. Neuro: No deficits noted. Cardiovascular: No deficits noted. Rhythm is sinus rhythm Chest pain is denied. Respiratory: Breath sounds with rhonchi in right upper lobe Onset: The symptoms/episode began/occurred gradually, the patient has mild shortness of breath. GI: Patient currently denies. : Denies. EENT: No deficits noted. Derm: No deficits noted. Musculoskeletal: No deficits noted. 11:37 Reassessment: pt awake, alert, in no resp distress at this time, remains on cardiac cb5 monitor, safety precautions are in effect. Call light is within reach. 12:29 Reassessment: No changes from previously documented assessment. cb5 12:57 Reassessment: No changes from previously documented assessment. cb5 15:00 Reassessment: No changes from previously documented assessment. cb5 17:19 Reassessment: No changes from previously documented assessment. cb5 19:10 General: Appears in no apparent distress. Behavior is uncooperative, pt stating she mk needs to go home, explained POC. Pain: Denies pain. Neuro: Level of Consciousness is awake, alert, obeys commands, Oriented to person, place, time, situation, Procurement Buyer are equal bilaterally Moves all extremities. Gait is steady, Speech is normal, Facial symmetry appears normal. Cardiovascular: Heart tones S1 S2 present Capillary refill < 3 seconds fingers toes Clubbing of nail beds is absent JVD is absent Patient's skin is warm and dry. Pulses are 2+ in right radial artery, right dorsalis pedis artery, left radial artery and left dorsalis pedis artery Rhythm is regular. GI: Abdomen is non-distended, Bowel sounds present X 4 quads. Abd is soft and non tender X 4 quads. : No signs and/or symptoms were reported regarding the genitourinary system. Denies inability to void, pain. Derm: Skin is intact, is healthy with good turgor, Skin is dry, Skin temperature is warm. Musculoskeletal: Capillary refill < 3 seconds, fingers. toes. Range of motion: intact in all extremities. 20:10 Reassessment: No changes from previously documented assessment. Patient and/or family mk updated on plan of care and expected duration. Pain level reassessed. Patient is alert, oriented x 3, equal unlabored respirations, skin warm/dry/pink. 21:00 Reassessment: No changes from previously documented assessment. Patient and/or family mk updated on plan of care and expected duration. Pain level reassessed. Patient is alert, oriented x 3, equal unlabored respirations, skin warm/dry/pink. 22:10 Reassessment: No changes from previously documented assessment. Patient and/or family mk updated on plan of care and expected duration. Pain level reassessed. Patient is alert, oriented x 3, equal unlabored respirations, skin warm/dry/pink. 23:24 Reassessment: No changes from previously documented assessment. Patient and/or family mk updated on plan of care and expected duration. Pain level reassessed. Patient is alert, oriented x 3, equal unlabored respirations, skin warm/dry/pink. Vital Signs: 10:25 BP 116 / 92; Pulse 82; Resp 20; Temp 98.1; Pulse Ox 98% ; Weight 69.4 kg; Height 5 ft. vg1 1 in. (154.94 cm); Pain 0/10; 10:40 BP 121 / 71; Pulse 80; Resp 16; Temp 98.7; Pulse Ox 98% ; Pain 0/10; cb5 11:26 BP 119 / 66; Pulse 84; Resp 16; Temp 98.7; Pulse Ox 98% ; Pain 0/10; cb5 14:12 BP 157 / 97; Pulse 79; Resp 16; Pulse Ox 98% ; Pain 0/10; cb5 17:30 BP 106 / 62; Pulse 70; Resp 16; Pain 0/10; cb5 19:11 BP 102 / 83; Pulse 88; Resp 18; Pulse Ox 100% on R/A; mk 20:10 Pulse 88; Resp 18; Pulse Ox 100% on R/A; mk 21:10 BP 102 / 63; Pulse 71; Resp 18; Pulse Ox 98% on R/A; mk 22:10 BP 128 / 89; Pulse 88; Resp 16; Pulse Ox 99% on R/A; mk 23:10 BP 105 / 56; Pulse 77; Resp 18; Pulse Ox 98% on R/A; mk 10:25 Body Mass Index 28.91 (69.40 kg, 154.94 cm) vg1 Manuel Coma Score: 19:10 Eye Response: spontaneous(4). Verbal Response: oriented(5). Motor Response: obeys mk commands(6). Total: 15. 19:11 Eye Response: spontaneous(4). Verbal Response: oriented(5). Motor Response: obeys mk commands(6). Total: 15. 20:10 Eye Response: spontaneous(4). Verbal Response: oriented(5). Motor Response: obeys mk commands(6). Total: 15. 20:10 Eye Response: spontaneous(4). Verbal Response: oriented(5). Motor Response: obeys mk commands(6). Total: 15. 21:10 Eye Response: spontaneous(4). Verbal Response: oriented(5). Motor Response: obeys mk commands(6). Total: 15. 22:10 Eye Response: spontaneous(4). Verbal Response: oriented(5). Motor Response: obeys mk commands(6). Total: 15. 22:10 Eye Response: spontaneous(4). Verbal Response: oriented(5). Motor Response: obeys mk commands(6). Total: 15. ED Course: 09:45 Patient arrived in ED. mr 10:24 Gee Cooper PA is PHCP. jm 10:24 Venkat Downs MD is Attending Physician. jm 10:28 Triage completed. 1 10:28 Arm band placed on. vg1 10:37 Simin Anguiano, RN is Primary Nurse. cb5 11:13 Basic Metabolic Panel Sent. cb5 11:14 LFT's Sent. cb5 11:14 Magnesium Sent. cb5 11:15 NT PRO-BNP Sent. cb5 11:15 Troponin HS Sent. cb5 11:18 Notified Nurse Practitioner and/or Physician [employer] Worker of a critical lab result(s), [facility] D-dimer 571. 11:24 Patient has correct armband on for positive identification. Allergy band placed. Fall cb5 risk band placed. Bed in low position. Call light in reach. Side rails up X2. 11:41 CT Chest For PE Angio In Process Unspecified. EDMS 12:31 XRAY Chest (1 view) In Process Unspecified. EDMS 17:14 Repeat lab(s) drawn. by id, sent to lab. [facility] 19:01 Report given to Elva Lim [facility] 19:55 Attending Physician role handed off by Venkat Downs MD [facility] 19:55 Ramón Monsalve MD is Attending Physician. [facility] 22:40 Basic Metabolic Panel Sent. 22:40 BMP: repeat after treatment Sent. mk 23:25 No provider procedures requiring assistance completed. IV discontinued, intact, mk bleeding controlled, No redness/swelling at site. Administered Medications: 12:20 Drug: Magnesium Sulfate 1 grams Route: IVPB; Infused Over: 1 hrs; Site: left 5 antecubital; 23:26 Follow up: Response: No adverse reaction mk 13:07 Drug: NS 0.9% 500 ml Route: IV; Rate: bolus; Site: left antecubital; [facility] 13:45 Follow up: Response: No adverse reaction; IV Status: Completed infusion; IV Intake: jl7 500ml 18:10 Drug: D50W 50 ml Route: IVP; Site: left antecubital; [facility] 23:26 Follow up: Response: No adverse reaction mk 18:10 Drug: Albuterol 2.5 mg Route: Inhalation; [facility] 18:11 Drug: Insulin Regular Human 10 units {Co-Signature: [email or web address] (Dylan Barakat RN).} Route: IVP; [facility] Site: left antecubital; 22:40 Follow up: Response: No adverse reaction mk 18:12 Drug: Calcium Gluconate 1 grams Route: IVPB; Infused Over: 60 mins; Site: left cb5 antecubital; 23:26 Follow up: Response: No adverse reaction 18:12 Drug: Kayexalate (polystyrene) 30 grams Route: PO; cb5 22:40 Follow up: Response: No adverse reaction mk 18:12 Drug: Albuterol 2.5 mg Route: Inhalation; cb5 22:40 Follow up: Response: No adverse reaction mk 23:26 Follow up: Response: No adverse reaction Intake: 13:45 IV: 500ml; Total: 500ml. jl7 Outcome: 23:19 Discharge ordered by MD. wlison 23:25 Discharged to 23:25 Discharged to home ambulatory. 23:25 Condition: good 23:25 Discharge instructions given to patient. 23:27 Patient left the ED. mk Signatures: Dispatcher [employer] EDMS Gee Cooper PA PA jmm Rivera, Mary mr Dylan Barakat RN RN jl7 Mari Lino RN RN vg1 Ramón Monsalve MD MD mh7 Kotarski, Madeline, Simin Almeida RN, RN RN cb5 Dylan Barakat RN jl7
--- NOTE | 2021-11-09 23:20 | EDPHYS ---
Physician Documentation [facility] Name: Chelly Ferguson Age: 65 yrs Sex: Female : 1955 Arrival Date: 11/09/2021 Time: 09:45 Bed 13 Private MD: ED Physician Ramón Monsalve HPI: 11/09 11:07 This 65 yrs old Female presents to ER via Ambulatory with complaints of jmm Covid+, Breathing Difficulty. 11:07 The patient has shortness of breath at rest. Onset: The symptoms/episode began/occurred jmm gradually, 1 week(s) ago. Duration: The symptoms are continuous, and are steadily getting worse. The patient's shortness of breath is aggravated by nothing, is alleviated by nothing. Associated signs and symptoms: Pertinent positives: Diarrhea. It is unknown whether or not the patient has had similar symptoms in the past. This is a 65-year-old female with history of diabetes mellitus, hyperlipidemia, hypertension the presents emerge department with complaints of cough, shortness of breath. Patient states she has some pain radiating to the right scapular region. Patient states she was sent by her PCP for "lab work". Historical: - Allergies: 10:28 No Known Allergies; vg1 - Home Meds: 10:28 gabapentin 600 mg Oral tab 1 tab twice a day [Active]; atorvastatin calcium 20mg daily vg1 [Active]; magnesium 400mg twice a day [Active]; Magnesium Oxide Oral [Active]; metformin 1,000 mg Oral tab 1 tab 2 times per day [Active]; Jardiance 10 mg Oral tab 1 tab once daily [Active]; 11:24 acetaminophen 650 mg Oral TbER every 8 hrs as needed [Active]; Calcium 500 + D cb5 500mg-125 units once a day Oral [Active]; Glucophage 1,000 mg Oral tab 1 tab 2 times per day [Active]; hydrochlorothiazide 12.5 mg Oral tab 1 tab once daily [Active]; Januvia 100 mg Oral tab 1 tab once daily [Active]; Lipitor 20 mg Oral tab 1 tab once daily [Active]; lisinopril 10 mg Oral tab once daily [Active]; vitamin D-3 1000 unit once a day [Active]; - PMHx: 10:28 Diabetes - NIDDM; Hyperlipidemia; Hypertension; vg1 - Immunization history:: Client reports receiving the 2nd dose of the Covid vaccine. - Social history:: Smoking status: Patient denies any tobacco usage or history of. ROS: 11:07 Constitutional: Negative for fever, chills, and weight loss, Cardiovascular: Negative jmm for chest pain, palpitations, and edema. 11:07 Respiratory: Positive for shortness of breath. 11:07 All other systems are negative. Exam: 11:07 Constitutional: This is a well developed, well nourished patient who is awake, alert, jmm and in no acute distress. Head/Face: atraumatic. Eyes: EOMI, no conjunctival erythema appreciated ENT: Moist Mucus Membranes Neck: Trachea midline, Supple Chest/axilla: Normal chest wall appearance and motion. Cardiovascular: Regular rate and rhythm. No edema appreciated Respiratory: Normal respirations, no respiratory distress appreciated Abdomen/GI: Non distended, soft Back: Normal ROM Skin: General appearance color normal 11:07 MS/ Extremity: Moves all extremities, no obvious deformities appreciated, no edema noted to the lower extremities Neuro: Awake and alert, normal gait Psych: Behavior is normal, Mood is normal, Patient is cooperative and pleasant 11:07 Respiratory: Breath sounds: wheezing: that is mild, is heard in the right posterior middle lobe and right posterior lower lobe. Vital Signs: 10:25 BP 116 / 92; Pulse 82; Resp 20; Temp 98.1; Pulse Ox 98% ; Weight 69.4 kg; Height 5 ft. vg1 1 in. (154.94 cm); Pain 0/10; 10:40 BP 121 / 71; Pulse 80; Resp 16; Temp 98.7; Pulse Ox 98% ; Pain 0/10; cb5 11:26 BP 119 / 66; Pulse 84; Resp 16; Temp 98.7; Pulse Ox 98% ; Pain 0/10; cb5 14:12 BP 157 / 97; Pulse 79; Resp 16; Pulse Ox 98% ; Pain 0/10; cb5 17:30 BP 106 / 62; Pulse 70; Resp 16; Pain 0/10; cb5 19:11 BP 102 / 83; Pulse 88; Resp 18; Pulse Ox 100% on R/A; mk 20:10 Pulse 88; Resp 18; Pulse Ox 100% on R/A; mk 21:10 BP 102 / 63; Pulse 71; Resp 18; Pulse Ox 98% on R/A; mk 22:10 BP 128 / 89; Pulse 88; Resp 16; Pulse Ox 99% on R/A; mk 23:10 BP 105 / 56; Pulse 77; Resp 18; Pulse Ox 98% on R/A; mk 10:25 Body Mass Index 28.91 (69.40 kg, 154.94 cm) vg1 Manuel Coma Score: 19:10 Eye Response: spontaneous(4). Verbal Response: oriented(5). Motor Response: obeys mk commands(6). Total: 15. 19:11 Eye Response: spontaneous(4). Verbal Response: oriented(5). Motor Response: obeys mk commands(6). Total: 15. 20:10 Eye Response: spontaneous(4). Verbal Response: oriented(5). Motor Response: obeys mk commands(6). Total: 15. 20:10 Eye Response: spontaneous(4). Verbal Response: oriented(5). Motor Response: obeys mk commands(6). Total: 15. 21:10 Eye Response: spontaneous(4). Verbal Response: oriented(5). Motor Response: obeys mk commands(6). Total: 15. 22:10 Eye Response: spontaneous(4). Verbal Response: oriented(5). Motor Response: obeys mk commands(6). Total: 15. 22:10 Eye Response: spontaneous(4). Verbal Response: oriented(5). Motor Response: obeys mk commands(6). Total: 15. MDM: 10:35 Patient medically screened. [facility] 17:59 Transition of care: After a detail discussion of the patient's case, care is [facility] transferred to Venkat Downs MD. 23:17 Differential diagnosis: Anemia Anxiety Reaction asthma, Bronchitis CHF exacerbation, mh7 Chronic Obstructive Pulmonary Disease Myocardial Infarction pneumonia, Pneumothorax Psychogenic pulmonary edema, Pulmonary Embolism reactive airway disease. Data reviewed: vital signs, nurses notes, lab test result(s), cardiac enzymes, CBC, electrolytes, EKG, radiologic studies, CT scan, plain films. Data interpreted: Pulse oximetry: on room air is 100 %. Interpretation: normal. Counseling: I had a detailed discussion with the patient and/or guardian regarding: the historical points, exam findings, and any diagnostic results supporting the discharge/admit diagnosis, lab results, radiology results, the need for outpatient follow up, to return to the emergency department if symptoms worsen or persist or if there are any questions or concerns that arise at home. Response to treatment: the patient's symptoms have resolved after treatment, the patient's blood pressure is in an acceptable range, mental status has returned to baseline, the patient no longer shows bradycardia, the patient is not short of breath, the patient is not tachycardic, the patient's pain is gone, the patient's temperature has normalized. 11/09 10:35 Order name: Basic Metabolic Panel; Complete Time: 11:43 [facility] 11/09 10:35 Order name: CBC with Diff; Complete Time: 11: [facility] 11/09 10:35 Order name: LFT's; Complete Time: [facility] 11/09 10:35 Order name: Magnesium; Complete Time: :43 [facility] 11/09 10:35 Order name: NT PRO-BNP; Complete Time: :43 [facility] 11/09 10:35 Order name: PT-INR; Complete Time: 11: [facility] 11/09 10:35 Order name: Troponin HS; Complete Time: 11:43 [facility] 11/09 10:35 Order name: XRAY Chest (1 view); Complete Time: 12:49 [facility] 11/09 10:35 Order name: D-Dimer; Complete Time: 11: [facility] 11/09 11:19 Order name: CT Chest For PE Angio; Complete Time: 12:13 [facility] 11/09 14:19 Order name: BMP; Complete Time: 17:42 [facility] 11/09 17:47 Order name: BMP: repeat after treatment [facility] 11/09 17:48 Order name: Basic Metabolic Panel; Complete Time: 23:14 [facility] 11/09 10:35 Order name: EKG; Complete Time: 10:36 [facility] 11/09 10:35 Order name: Cardiac monitoring; Complete Time: 11:12 [facility] 11/09 10:35 Order name: EKG - Nurse/Tech; Complete Time: 10:37 [facility] 11/09 10:35 Order name: IV Saline Lock; Complete Time: 11:12 [facility] 11/09 10:35 Order name: Labs collected and sent; Complete Time: 11: [facility] 11/09 10:35 Order name: O2 Per Protocol; Complete Time: 11:12 [facility] 11/09 10:35 Order name: O2 Sat Monitoring; Complete Time: : [facility] Administered Medications: 12:20 Drug: Magnesium Sulfate 1 grams Route: IVPB; Infused Over: 1 hrs; Site: left cb5 antecubital; 23:26 Follow up: Response: No adverse reaction mk 13:07 Drug: NS 0.9% 500 ml Route: IV; Rate: bolus; Site: left antecubital; [facility] 13:45 Follow up: Response: No adverse reaction; IV Status: Completed infusion; IV Intake: jl7 500ml 18:10 Drug: D50W 50 ml Route: IVP; Site: left antecubital; [facility] 23:26 Follow up: Response: No adverse reaction mk 18:10 Drug: Albuterol 2.5 mg Route: Inhalation; [facility] 18:11 Drug: Insulin Regular Human 10 units {Co-Signature: [facility] (Dylan Barakat RN).} Route: IVP; [facility] Site: left antecubital; 22:40 Follow up: Response: No adverse reaction mk 18:12 Drug: Calcium Gluconate 1 grams Route: IVPB; Infused Over: 60 mins; Site: left cb5 antecubital; 23:26 Follow up: Response: No adverse reaction mk 18:12 Drug: Kayexalate (polystyrene) 30 grams Route: PO; [facility] 22:40 Follow up: Response: No adverse reaction mk 18:12 Drug: Albuterol 2.5 mg Route: Inhalation; [facility] 22:40 Follow up: Response: No adverse reaction mk 23:26 Follow up: Response: No adverse reaction Disposition: 11/10 02:48 Co-signature as Attending Physician, Ramón Monsalve MD. [facility] Disposition Summary: 11/09/21 23:19 Discharge Ordered Location: Home [facility] Problem: new mh7 Symptoms: have improved mh7 Condition: Stable mh7 Diagnosis - Coronavirus infection, unspecified mh7 - Hyperkalemia - Resolved mh7 - Hypomagnesemia mh7 Followup: [facility] - With: Private Physician - When: 1 - 2 days - Reason: Worsening of condition, Recheck today's complaints, Continuance of care, Re-evaluation by your physician Discharge Instructions: - Discharge Summary Sheet mh7 - Hyperkalemia, [id number] mh7 - Hypomagnesemia mh7 - COVID-19 [facility] - COVID-19 Frequently Asked Questions [facility] - 10 Things You Can Do to Manage Your COVID-19 Symptoms at Home - [place] [id number] - COVID-19: Quarantine vs. Isolation - [place] [address] Forms: - Medication Reconciliation Form [facility] - Thank You Letter [facility] - Antibiotic Education [facility] - Prescription Opioid Use [facility] Prescriptions: - albuterol sulfate 90 mcg/actuation Inhalation HFA aerosol inhaler - inhale 1 puff by INHALATION route every 4-6 hours As needed; 1 Inhaler; 7 Refills: 0, Product Selection Permitted - Tessalon Perles 100 mg Oral Capsule - take 1 capsule by ORAL route every 8 hours As needed; 15 capsule; Refills: 0, [facility] Product Selection Permitted - Zithromax Z-Balaji 250 mg Oral Tablet - take 1 tablet by ORAL route as directed for 5 days Day 1 - take two (2) tablets [facility] one time. Day 2, 3, 4 , 5 take one (1) tablet once daily.; 6 tablet; Refills: 0, Product Selection Permitted Signatures: Dispatcher [employer] EDMS Gee Cooper PA PA jmm Leal, Jahala, RN RN jl7 Mari Lino RN RN vg1 Ramón Monsalve MD MD mh7 Simin Anguiano, RN RN cb5 Kinsey Butterfield RN Dylan Barakat RN jl7 Corrections: (The following items were deleted from the chart) 11/09 12:48 11:19 [facility]. Order ordered. sonia teresa
[2021-11-09 23:43] VITALS: TEMP 98.7
[2021-11-09 23:52] VITALS: BP 105/56; O2SAT 98
== END 2021-11-09 23:27 | disposition home or self-care (01) ==
LOC: ER 09:36
DX: U07.1 COVID-19 (principal); E83.42 Hypomagnesemia; I10 Essential (primary) hypertension; E11.9 Type 2 diabetes mellitus without complications
CPT/HCPCS: 96361; 93005; 85025; 80048 ×3; 36415; 83735; 85610; 82565; 85379; 80076; 84484; 83880; 71275; 71045; 96375; 96374; 99285; Q9967; J3475; J0610; J7040